=== PATIENT | female | born 1985 | race Caucasian/White ===

== ENCOUNTER 2020-03-10 18:03 | Emergency (ER) | payer OTHER, SELFPAY ==
[2020-03-10 18:07] VITALS: BP 146/94; PULSE 104; RESP 20; TEMP 37.4; O2SAT 98
--- NOTE | 2020-03-10 18:12 | ED.DENTAL ---
HPI - Dental/Oral General Chief complaint: Dental/Oral Stated complaint: toothache Time Seen by Provider: 03/10/20 18:07 Source: patient Mode of arrival: ambulatory Limitations: no limitations History of Present Illness HPI Narrative: patient is a 34-year-old female who presents to emergency department for evaluation of gross dental decay to the upper teeth where she has gross decay patient notes aching pain worse with eating denies other symptoms or complaints and is otherwise resting comfortably in the room in no distress does not have a plan follow-up nor is she been seen for this complaint Related Data Allergies Allergy/AdvReac Type Severity Reaction Status Date / Time No Known Allergies Allergy Unknown Verified 03/10/20 18:09 [facility] Social History Social History (Updated 03/10/20 @ 18:19 by Sanchez Trejo PA-C) Smoking status: Current every day smoker Exam Narrative: Exam Narrative: GENERAL: Well-appearing, well-nourished, and in no acute distress. HEAD: Normocephalic, atraumatic. EYES: PERRLA and EOMI. ENT: Nares clear, no rhinorrhea or epistaxis. Mucous membranes moist. Oropharynx without tonsillar hypertrophy exudate or other lesions. Gross dental decay no erythema or swelling of the gum lines floor the mouth is soft NECK: Supple. No adenopathy or masses. CHEST: Clear to auscultation. No respiratory distress. No wheezes rales or rhonchi HEART: Regular rate and rhythm. No murmur heard. Normal peripheral pulses. ABDOMEN: Soft, nontender, nondistended EXTREMITIES: Normal range of motion. No edema. SKIN: Warm, dry, no rash. NEURO: No focal deficits. Alert and oriented x3. PSYCH: Normal mood and affect. Course Course Emergency Course: Patient in the room at this time in no distress aware of case findings treatment plan and diagnosis will be given dental referrals Vital Signs Vital signs: Vital Signs Temperature 99.4 F 03/10/20 18:07 Pulse Rate 104 H 03/10/20 18:07 Respiratory Rate 20 03/10/20 18:07 Blood Pressure 146/94 H 03/10/20 18:07 Pulse Oximetry 98 03/10/20 18:07 Temperature 99.4 F 03/10/20 18:07 Pulse Rate 104 H 03/10/20 18:07 Respiratory Rate 20 10/24/20 18:07 Blood Pressure 146/94 H 03/10/20 18:07 Pulse Oximetry 98 03/10/20 18:07 MDM - Dental/Oral MDM Narrative Medical decision making narrative: Paitents pain and complaint coupled with physical findings are consistant with dentalgia. There are no focal signs of space occupying lesions that are compromising to the ariway. The floor of the mouth is soft with no signs of Ludwigs Angina. Patient is without trismus or drooling and able to swallow secreations. Patient is felt appropriate for discharge home with dental follow up. Discharge Plan Discharge Clinical Impression: Dental abscess Patient Disposition: Home, Self-Care Condition: Stable Instructions: Antibiotic Form, Dental Abscess (ED) Additional Instructions: Follow-up with dentistry in the next 7 days. Go to ER for shortness of breath, difficulty breathing, chest pain, fever/chills, weakness, nauseau/vomitting, etc. or any other concerns. Take any prescribed medications as directed. If you do not have a drug allergy to tylenol or motrin and can tolerate it then take tylenol or motrin as needed for discomfort/pain. Prescriptions: New amoxicillin 500 mg capsule 500 mg PO TID 10 Days Qty: 30 RF: 0 chlorhexidine gluconate [Peridex] 0.12 % mouthwash 15 ml mucous membrane BID Qty: 1500 RF: 0 ibuprofen [IBU] 600 mg tablet 600 mg PO QID PRN (Reason: fever or pain) Qty: 7 RF: 0 Follow-up/Referrals: Leno,MD Nathen [Primary Care Provider] - Dental Referral Line [Outside] [facility] [Outside] [facility] [place] [Outside] [facility] [Outside] Stand Alone Forms: Work/School Release IP
[2020-03-10 18:37] VITALS: BP 138/88; PULSE 100; RESP 20; O2SAT 100
== END 2020-03-10 18:38 | disposition home or self-care (01) ==
PROVIDERS: Emergency Provider Emergency Medicine; PCP Internal Medicine
DX: K04.7 Periapical abscess without sinus (principal); F17.200 Nicotine dependence, unspecified, uncomplicated
CPT/HCPCS: 99283

== ENCOUNTER 2025-03-22 10:48 | Emergency (ER) | payer OTHER, SELFPAY ==
--- NOTE | ~2025-03-22 | CT_ITS ---
CT HEAD NON-CONTRAST Clinical History: headache, new quality Comparison: 10/26/2012 Technique: Unenhanced axial images skull base to vertex Coronal, sagittal reformats CT images acquired with automatic exposure control for dose reduction DLP: 530 mGy-cm Findings: Sulci, ventricles: Unremarkable. No intracerebral hemorrhage. No evidence acute territorial infarct. No mass effect, midline shift. Bony calvarium intact. Visualized paranasal sinuses: Clear. Mastoid air cells: Clear. IMPRESSION: 1. No acute intracranial findings. Reviewed, dictated and finalized at location R. FORCE SENIOR OFFICER
[2025-03-22 11:12] VITALS: BP 110/70; PULSE 91; RESP 16; TEMP 36.8; O2SAT 100
--- NOTE | 2025-03-22 13:08 | ED_ITS ---
HPI - Headache General Chief Complaint: Headache Stated Complaint: blurry vision, ALEJANDRO x 2 days Time Seen by Provider: 03/22/25 13:05 History of Present Illness HPI Narrative: This is a 39-year-old female more with history of migraines who presents the ED for headache. Patient states that for the last 2 days, she has been having a frontal and bitemporal headache that is worse than her normal migraines. She states that yesterday she felt like she was drunk 7 difficulty walking around which is new for her. She has had photophobia and phonophobia. Denies nausea, vomiting, numbness tingling. She tried her sumatriptan that she has at home with minimal relief. Denies any known traumas. Related Data Allergies Allergy/AdvReac Type Severity Reaction Status Date / Time No Known Allergies Allergy Unknown Verified 03/22/25 11:15 Review of Systems Review of Systems: Gen.: Denies fevers or chills Eyes: As per HPI ENT: Denies congestion Respiratory: Denies shortness of breath or cough CV: Denies chest pain or palpitations GI: Denies abdominal pain nausea, emesis or diarrhea denies burning, urgency, frequency or hematuria Musculoskeletal: Denies back pain or muscle pain Neuro: Denies numbness, tingling, weakness or focal weakness Skin: Denies rash Except as documented, all other systems reviewed and negative Exam Narrative: APPEARANCE: No acute distress, nontoxic, resting in bed EYES: EOMI HEENT: Normocephalic, atraumatic, OMM RESPIRATORY: No respiratory distress Clear to auscultation bilaterally with no rhonchi wheezing or rales. CARDIOVASCULAR: Regular rate and rhythm without murmurs rubs or gallops. ABDOMINAL: Soft, nontender, nondistended, no rebound or guarding MUSCULOSKELETAl: Moves all extremities. No clubbing, cyanosis or edema. NEURO: Awake and alert. Following commands, speech normal, no focal deficits. NIHSS 0 SKIN:: Warm, dry. No rashes lesions or abrasions PSYCHIATRIC: Normal affect/mood, Course Vital Signs Vital signs: Vital Signs Temperature 98.2 F 03/22/25 11:12 Pulse Rate 91 03/22/25 11:12 Respiratory Rate 16 03/22/25 11:12 Blood Pressure 110/70 03/22/25 11:12 Pulse Oximetry 100 03/22/25 11:12 Temperature 98.1 F 03/22/25 14:44 Pulse Rate 75 03/22/25 14:44 Respiratory Rate 16 03/22/25 14:44 Blood Pressure 112/73 03/22/25 14:44 Pulse Oximetry 99 03/22/25 14:44 MDM - Headache MDM Narrative Medical decision making narrative: 39-year-old female Presenting for migraine headache. On initial evaluation patient was in no acute distress afebrile, hemodynamic stable. Differentials include but are not limited to: Migraine, tension headache, mass, electrolyte abnormality, ICH Notable exam findings: Nonfocal neuro exam Notable imaging findings: CT head showed no acute process. Given the new qualities of the headache whom CT imaging was indicated at this time it did show any masses or bleeds. Patient was given Compazine, Toradol with near resolution of her symptoms. Patient was deemed appropriate for discharge at this time. Patient was advised follow-up with their PCP in the next week for re-evaluation. Patient was agreeable to this plan. Given strict return precautions. Medical Records Attestation: I reviewed the patient's medical records. Imaging Data Attestation: I personally reviewed and interpreted this imaging study as follows: Radiologist's impression: Impressions Head CT 03/22/25 13:35 IMPRESSION: 1. No acute intracranial findings. Discharge Plan Discharge Clinical Impression: Migraine Patient Disposition: Home Condition: Stable Instructions: Antibiotic Form, Migraine Headache (ED) Additional Instructions: CT scan of your head was reassuring. You were given Compazine and Toradol and Decadron for headache with improvement. Follow-up with your PCP in the next week for re-evaluation. Return to the ED for any new or worsening symptoms. Patient Language: Portuguese Prescriptions: No Action amoxicillin 500 mg capsule 500 mg PO TID 10 Days Qty: 30 0RF chlorhexidine gluconate [Peridex] 0.12 % mouthwash 15 ml mucous membrane BID Qty: 1500 0RF ibuprofen [IBU] 600 mg tablet 600 mg PO QID PRN (Reason: fever or pain) Qty: 7 0RF Follow-up/Referrals: Leno,MD Nathen [Non-Staff]
[2025-03-22] MEDS: diphenhydrAMINE HCl CAP 25 MG CAPSULE PO (13:48)
[2025-03-22] MEDS: KETOROLAC 15 MG/ML VIAL (*BKC) IM (13:49)
[2025-03-22] MEDS: PROCHLORPERAZINE MALEATE 5 MG TABLET 10 MG PO (14:17)
[2025-03-22] MEDS: dexAMETHasone SOD PHOS INJ 10 MG/ML 1 ML VIAL IM (14:19)
[2025-03-22 14:44] VITALS: BP 112/73; PULSE 75; RESP 16; TEMP 36.7; O2SAT 99
--- OUTSIDE RECORDS SUMMARY | 2025-03-23 10:25 | XMS_ITS | Clinical Summary ---
Author Organization [facility] Address [address] [place] [address] Care Team Providers Care Envelope Sealer Operator Name Role Phone Dillon Calderon MD Primary Care Provider [phone] Source Comments [facility],non-owned Affiliates and Associated Physician Practices is amultiple site organization consisting of ambulatory clinics and hospital sitesin [place], [place], [place] and [place]. This disclosure is being madepursuant to the Care Everywhere program and may not contain all information available regarding this patient. Last updated 18.[facility] Allergies No known active allergies Medications * This document contains information received from the source organization and may not represent a complete record from that organization. * Be aware that medications may not be up to date on this document. Alwaysverify current medications with the patient. Dcjayqbl-Vhy-J e-FA ( VITAMIN WITH IRON) tablet Take 1 Tab by mouth once daily 30 Tab 5 02/03/20 16 Active methadone (DOLOPHINE) 10 MG tablet Take 130 mg by mouth once daily Active metoclopramide (REGLAN) 10 MG tablet Take 10 mg by mouth 3 times daily before meals Active acetaminophen (TYLENOL) 500 MG tablet Take 500 mg by mouth every 4 hours as needed for Fever or Pain Maximum allowable Acetaminophen amount = 4 Grams (4000 mg) / 24 hours. Active ondansetron, disintegrating , (ZOFRAN ODT) 4 MG tablet Take 4 mg by mouth every 6 hours as needed for Nausea/Vomiting Allow tablet to dissolve on the tongue Active docusate sodium (COLACE) 100 MG capsuleIndicat ions:Constipat ion Take 1 Cap by mouth 2 times daily as needed for Constipation Reasons: Constipation 60 Cap 4 09/26/19 17 Active polyethylene glycol 3350 (MIRALAX) packet Take 17 g by mouth once daily as needed for Constipation 30 Packet 1 10/23/19 17 Active raNITIdine (ZANTAC) 150 MG tabletIndicati ons:Gastroesop hageal Reflux Disease Take 1 Tab by mouth 2 times daily Reasons: Gastroesophageal Reflux Disease 60 Tab 5 10/31/19 17 Active ibuprofen (MOTRIN) 600 MG tablet Take 1 Tab by mouth every 6 hours as needed for Pain 60 Tab 1 11/30/19 17 Active docusate sodium (COLACE) 100 MG capsule Take 1 Cap by mouth 2 times daily 60 Cap 1 11/30/19 17 Active ferrous sulfate 325 (65 FE) MG tablet Take 1 Tab by mouth daily with breakfast 60 Tab 1 11/30/19 17 Active Active Problems Problem Noted Date Diagnosed Date Precipitous delivery 11/27/2016 Premature rupture of membran es (PROM), onset of labor after 24 hours, antepartum, 11/27/2016 Poor dentition 09/04/2016 Supervision of high risk in [facility] 09/03/2016 Overview (09/08/2016): Datinwk US Blood type: O- Ab screen: neg Rubella: imm Hepatitis B: neg RPR: NR HIV: NR Hepatitis C: needed Pap: requested GC/CT: neg/neg Urine cx: H/H/P:13.1/37.5/227 HgbE: Genetics: Anatomy US: GCT: GBS: Tdap: Flu shot: Methadone maintenance treatment affecting pregna ncy 09/03/2016 Rh negative state in antepartum period 7 History of heroin abuse 09/03/2016 WISH patient 09/03/2016 complicated by tobacco use in [facility] 09/03/2016 H/O delivery, currently 017 Short cervix affecting 09/03/2016 Oligohydramnios History of pelvic fracture Immunizations Immunization Administration Dates Next Due HEP A VACCINE, ADULT 09/04/2016 HEP B VACCINE, ADULT 3 DOSE 09/04/2016 Rho D Immune Globulin 11/28/2016,11/25/2016,08/17,02/03/2016 TDAP (7yrs+) 11/28/2016 Family History Medical History Relation Name Comments Cancer Maternal Grandfather Arthritis Maternal Grandmother Diabetes Maternal Grandmother Heart Disease Maternal Grandmother Hypertension Maternal Grandmother Stroke Maternal Grandmother Arthritis Mother Cancer Paternal Grandmother Relation Name Status Comments Daughter Alive Father Maternal Grandfather Maternal Grandmother Alive Mother Alive Paternal Grandfather Paternal Grandmother Alive Social History Tobacco Use Types Packs/Day Years Used Date Smoking Tobacco: Every Day Cigarettes 0.5 14 Smokeless Tobacco: Never Tobacco Cessation:Ready to Q uit: No; Counseling Given: Yes Alcohol Use Standard Drinks/Week Comments No 0 (1 standard drink = 0.6 oz pur e alcohol) Comments No Sex and Gender Information Value Date Recorded Sex Assigned at Not on file Legal Sex Female 6:32 AM 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 Gender Identity Not on file Sexual Orientation Not on file Last Filed Vital Signs Vital Sign Reading Time Taken Comments Blood Pressure 122/74 12/02/2016 9:32 PM CDT Pulse 90 11/29/2016 12:08 AM CDT Temperature 37.8 C (100.1 F) 12/02/2016 9:32 PM CDT Respiratory Rate 16 11/29/2016 8:30 AM CDT Oxygen Saturation 96% 12/02/2016 10:28 PM CDT Inhaled Oxygen Concentration - - Weight 71.4 kg (157 lb 8 oz) 11/23/2016 12:15 PM CDT Height 152.4 cm (5') 11/23/2016 12:15 PM CDT Body Mass Index 30.76 11/23/2016 12:15 PM CDT Plan of Treatment Health Maintenance Due Date Last Done Comments HPV VACCINE (1 - 3-dose SCDM series) 2014 HEPATITIS B VACCINE (2 of 3 - 19+ 3-dose series) 10/02/2016 09/04/2016 DEPRESSION SCREENING 05/18/2024 COVID-19 VACCINE ( - 2023-2 5 season) 2025 INFLUENZA VACCINE (#1) 2025 DTAP/TDAP/TD VACCINES (2 - T d or Tdap) 11/28/2026 11/28/2016 ZOSTER VACCINE (1 of 2) 2037 HIV SCREENING Completed 08/20/2016 HEPATITIS C SCREENING Completed 09/04/2016 HIB VACCINE Aged Out No longer eligi ble based on patient's age to complete this topic MENINGOCOCCAL (Group B) VACC INE SHARED DECISION-MAKING Aged Out No longer eligibl e based on patient's age to complete this topic MENINGOCOCCAL GROUPS A/C/Y/W VACCINE Aged Out No longer eligible b ased on patient's age to complete this topic PNEUMOCOCCAL VACCINE Aged Out No long er eligible based on patient's age to complete this topic Procedures Procedure Name Priority Date/Time Associated Diagnosis Comments HEPATITIS C ANTIBODY Routine 09/04/2016 10:24 AM CDT Methadone maintenance treatment affecting History of heroin abuse Opioid dependence in remission HIV-1 HIV-2 ANTIBODY W/ REFLX CONFIRM Routine 08/20/2016 from Last 3 Months or Most Recently Relevant to Health Maintenance Results * HEPATITIS C ANTIBODY (09/04/2016 10:24 AM CDT) HCV Antibody Screen Non Reactive Non Reactive 09/04/2016 12:05 PM CDT [facility] HCV S/C Ratio 0.06 0.00 - 0.79 09/04/2016 12:05 PM CDT [facility] Comment: Hzkpsh-kb-vtasfk ratio (S/CO) <0.80: Non Reactive Blood BLOOD SPECIMEN / Unknown Venipuncture / Unknown 09/04/2016 10:24 AM CDT 09/04/2016 10:48 AM CDT Narrative [facility] - 09/04/2016 12:05 PM CDT Non Reactive - Antibodies to Hepatitis C virus (HCV) were not detected, result does not exclude early acute HCV infection. Shruthi Conde NURSE DISCHARGE PLANNER-FORMULATION TECHNICIAN LAB - CHEMISTRY OR DERABLES Final Result [facility] [address] [place] [address] * HIV-1 HIV-2 ANTIBODY W/ REFLX CONFIRM (08/20/2016) HIV-1/HIV-2 Nonreactive Blood BLOOD SPECIMEN / Unknown Historical Provider LAB - SEROLOGY ORDERABLES Final Result from Last 3 Months or Most Recently Relevant to Health Maintenance Insurance [facility] Advance Directives * Full Code (Latest Code Status on File) Date Activated Date Inactivated Comments 12/02/2016 9:44 PM 12/03/2016 4:32 AM * Full Code Date Activated Date Inactivated Comments 11/11/2016 2:04 PM 11/29/2016 12:38 PM * Full Code Date Activated Date Inactivated Comments 11/11/2016 1:01 PM 11/11/2016 1:02 PM Care Teams Envelope Sealer Operator Relationship Specialty [place] [address] [place] [phone] PCP - General Internal Medicine 04/23/16
--- OUTSIDE RECORDS SUMMARY | 2025-03-23 10:25 | XMS_ITS | Clinical Summary ---
Author Organization [facility] Address [address] [place] [address] Care Team Providers Care Graduate Student Name Role Phone No, Physician Primary Care Provider [phone] Allergies No known active allergies Medications methadone solution 10 mg/5 mL Take 130 mg by mouth every 6 (six) hours as needed for pain Active levonorgestreL- ethinyl estrad (Aviane) 0.1-20 mg-mcg per tablet Take 1 tablet by mouth daily Active cyclobenzaprine (FLEXERIL) 10 mg tablet Take 1 tablet (10 mg total) by mouth 3 (three) times a day as needed 11/24/2024 Active gabapentin (NEURONTIN) 300 mg capsule TAKE 1 TO 2 CAPSULES BY MOUTH THREE TIMES DAILY NEEDED 10/18/2024 Active latanoprost (XALATAN) 0.005 % ophthalmic solution INSTILL 1 DROP INTO EACH EYE INTO EACH EYE AT NIGHT 10/18/2024 Active Active Problems No known active problems Social History Tobacco Use Types Packs/Day Years Used Date Smoking Tobacco: Every Day Cigarettes Smokeless Tobacco: Never Tobacco Cessation:Ready to Q uit: Not Asked; Counseling Given: Not Answered Comments No Sex and Gender Information Value Date Recorded Sex Assigned at Not on file Legal Sex Female 9:43 AM CDT Gender Identity Not on file Sexual Orientation Not on file Last Filed Vital Signs Vital Sign Reading Time Taken Comments Blood Pressure 112/74 11/28/2024 9:59 AM CDT Pulse 82 11/28/2024 9:59 AM CDT Temperature 36.7 C (98.1 F) 08/25/2018 9:44 AM CDT Respiratory Rate 16 08/25/2018 9:44 AM CDT Oxygen Saturation 98% 11/28/2024 9:59 AM CDT Inhaled Oxygen Concentration - - Weight 56.7 kg (125 lb) 11/28/2024 9:59 AM CDT Height 152.4 cm (5') 11/28/2024 9:59 AM CDT Body Mass Index 24.41 11/28/2024 9:59 AM CDT Plan of Treatment Health Maintenance Due Date Last Done Comments Cervical Cancer Screening 1987 Depression Screening 1987 Hepatitis C Screening 1987 Varicella Vaccines (1 of 2 - 13+ 2-dose series) 2000 Regular Well Visit/Exam 18-64 2005 Pneumococcal vaccine <65 (1 of 2 - PCV) 2006 HPV Vaccines (1 - 3-dose SCD M series) 2014 Covid-19 Vaccine (3 - 2024-2 6 season) 2025 06/05/2021, 05/06/2021 Influenza Vaccine (#1) 2025 , 03/27/2022, 04/03/2020, Additional history exists DTaP/Tdap/Td Vaccine (2 - Td or Tdap) 11/28/2026 11/28/2016 Hepatitis B Screening Completed 09/04/2016 Insurance Care Teams Graduate Student Relationship Specialty Start Date End Date No, Physician PCP - General 08/25/18
--- OUTSIDE RECORDS SUMMARY | 2025-03-23 12:43 | XMS_ITS | Clinical Summary ---
Author Organization [facility] Address [address] [place] [address] Care Team Providers Care Dimension Stone Quarry Supervisor Name Role Phone Cm Russell Primary Care Provider [phone] Social History Tobacco Use Types Packs/Day Years Used Date Smoking Tobacco: Never Assessed Comments Unknown Sex and Gender Information Value Date Recorded Sex Assigned at Not on file Legal Sex Female 9:34 AM CDT Gender Identity Not on file Sexual Orientation Not on file Plan of Treatment Health Maintenance Due Date Last Done Comments Cervical Cancer Screening Pa p Smear (Age 30 to 64) Every 3 Years 1987 Annual Physical 1990 Hepatitis C 2005 HPV Vaccines (1 - 3-dose SCD M series) 2014 Hepatitis B Vaccines (2 of 3 - 19+ 3-dose series) 10/02/2016 09/04/2016 Cervical Cancer Screening Pa p with HPV Testing (Age 30 to 64) Every 5 Years 2017 Cervical Cancer Screening with HPV 2017 COVID-19 Vaccine ( - 2024-2 6 season) 2025 Influenza Adult (#1) 2025 DTaP, Tdap and Td Vaccines ( 2 - Td or Tdap) 11/28/2026 11/28/2016 Hepatitis A Vaccines Aged Out 09/04/2016 No long er eligible based on patient's age to complete this topic Meningococcal B Vaccine Aged Out No l onger eligible based on patient's age to complete this topic Meningococcal Vaccine Aged Out No [place] noe eligible based on patient's age to complete this topic Pneumococcal Vaccine: Pediat rics (0 to 5 Years) and At-Risk Patients (6 to 49 Years) Aged Out No longer eligi ble based on patient's age to complete this topic RSV Immunizations Under 20 Months Aged Out No longer eligible based on patient's age to complete this topic Insurance [employer] Care Teams Dimension Stone Quarry Supervisor Relationship Specialty Start Date End Date Cm Russell PA PCP - General PHYSICIAN DEPARTURE CLERK 01/18/21
--- OUTSIDE RECORDS SUMMARY | 2025-03-23 12:43 | XMS_ITS | Clinical Summary ---
Author Organization [facility] Address [address] [place] [address] Care Team Providers Care Head Neck Surgeon Name Role Phone No, Physician Primary Care Provider [phone] Allergies No known active allergies Medications methadone [...] B Screening Completed 09/04/2016 Insurance Care Teams Head Neck Surgeon Relationship Specialty Start Date End Date No, Physician PCP - General 08/25/18
--- OUTSIDE RECORDS SUMMARY | 2025-03-23 12:43 | XMS_ITS | Clinical Summary ---
Author Organization [facility] Address [address] [place] [address] Care Team Providers Care Organ Teacher Name Role Phone Dillon Calderon MD Primary Care Provider [phone] Source Comments [facility],non-owned Affiliates and Associated Physician Practices is amultiple site organization consisting of ambulatory clinics and hospital sitesin [place], [place], [place] and [place]. This disclosure is being madepursuant to the Care Everywhere program and may not contain all information available regarding this patient. Last updated 18.[facility] Allergies No known active allergies Medications * This document contains information received from the source organization and may not represent a complete record from that organization. * Be aware that medications may not be up to date on this document. Alwaysverify current medications with the patient. Bgaxvjns-Ken-[id number] e-FA ( VITAMIN WITH IRON) tablet Take [...] dentition 09/04/2016 Supervision of high risk in [facility] 09/03/2016 Overview (09/08/2016): Datinwk US Blood type: [...] patient 09/03/2016 [facility] 09/03/2016 H/O delivery, currently 017 Short [...] on file Legal Sex Female 6:32 AM BINDERY OPERATOR Gender Identity Not on file Sexual Orientation [...] Reactive Non Reactive 09/04/2016 12:05 PM CDT [facility] HCV S/C Ratio 0.06 0.00 - 0.79 09/04/2016 12:05 PM CDT [facility] Comment: Aputfv-oy-nfieks ratio (S/CO) <0.80: Non Reactive Blood BLOOD SPECIMEN / Unknown Venipuncture / Unknown 09/04/2016 10:24 AM CDT 09/04/2016 10:48 AM CDT Narrative [facility] - 09/04/2016 12:05 PM CDT Non Reactive - Antibodies to Hepatitis C virus (HCV) were not detected, result does not exclude early acute HCV infection. Shruthi Conde FINANCE TEACHER-CUSTOMER PRICING MANAGER LAB - CHEMISTRY OR DERABLES Final Result [facility] [address] [place] [address] * HIV-1 HIV-2 ANTIBODY W/ REFLX CONFIRM (08/20/2016) HIV-1/HIV-2 Nonreactive Blood BLOOD SPECIMEN / Unknown Historical Provider LAB - SEROLOGY ORDERABLES Final Result from Last 3 Months or Most Recently Relevant to Health Maintenance Insurance [facility] Advance Directives * Full Code (Latest Code Status on File) Date Activated Date Inactivated Comments 12/02/2016 9:44 PM 12/03/2016 4:32 AM * Full Code Date Activated Date Inactivated Comments 11/11/2016 2:04 PM 11/29/2016 12:38 PM * Full Code Date Activated Date Inactivated Comments 11/11/2016 1:01 PM 11/11/2016 1:02 PM Care Teams Organ Teacher Relationship Specialty [place] [address] [place] [address] [phone] PCP - General Internal Medicine 04/23/16
== END 2025-03-22 14:45 | disposition home or self-care (01) ==
PROVIDERS: Emergency Provider Student in an Organized Health Care Education/Training Program; PCP Nurse Practitioner Family
DX: G43.909 Migraine, unspecified, not intractable, without status migrainosus (principal)
CPT/HCPCS: 70450; 96372; 99284; A9270; J1100; J1885

== ENCOUNTER 2025-04-05 12:09 | Emergency (ER) | payer OTHER, SELFPAY ==
--- NOTE | 2025-04-05 12:11 | ED.GENADULT ---
HPI - General Adult General Chief complaint: Urogenital-Female Stated complaint: lower back side pain Source: patient Mode of arrival: ambulatory Limitations: no limitations History of Present Illness HPI narrative: Pt is a 39 y/o female presenting with c/o atraumatic L. sided back pain. Pain started 2 days ago. 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 Reports hx of kidney stones. Denies hematuria, dysuria, urgency, frequency, abnormal vaginal discharge. No constitutional sx. No concern for STI or . No additional complaints. Related Data Allergies Allergy/AdvReac Type Severity Reaction Status Date / Time No Known Allergies Allergy Unknown Verified 04/05/25 12:10 Review of Systems Review of Systems: CONSTITUTIONAL: Denies body aches, fever, chills, or sweats. EYES: Denies visual changes, redness, or discharge. ENT: Denies rhinorrhea, congestion, sore throat, or otalgia. CARDIOVASCULAR: Denies chest pain, palpitations, or edema. RESPIRATORY: Denies cough or dyspnea. GASTROINTESTINAL: Denies abdominal pain, nausea, vomiting, or diarrhea. GENITOURINARY: Denies dysuria or hematuria. SKIN: Denies rash, itching, or wounds. MUSCULOSKELETAL: Reports back pain, denies joint pain, or myalgia. NEUROLOGIC: Denies headache, numbness, tingling, or weakness. PSYCH: Denies depression or anxiety. All systems reviewed & are unremarkable except as noted in HPI and below PMFSH Social History Social History Smoking status: Current every day smoker Exam Narrative: GENERAL: Well-appearing, well-nourished, and in no acute distress. HEAD: Normocephalic, atraumatic. EYES: EOMI. No redness or drainage. Conjunctivae normal. ENT: Mucous membranes pink and moist. NECK: Normal AROM. Supple. CHEST: No respiratory distress. HEART: Regular rate ABDOMEN: Soft, nontender, nondistended, normal active bowel sounds. +michael. CVAT MUSCULOSKELETAL: No bony tenderness. Tenderness with palpation along entire lower back EXTREMITIES: Normal range of motion. No edema. SKIN: Warm, dry, no rash. Capillary refill normal. Normal skin turgor. NEURO: No focal deficits. Alert and oriented x3. Gait steady. PSYCH: Normal affect. No signs of depression or anxiety. Course Course Level of Care: Express Care Visit Vital Signs Vital signs: Vital Signs Temperature 98.9 F 04/05/25 12:18 Pulse Rate 93 04/05/25 12:18 Respiratory Rate 16 04/05/25 12:18 Blood Pressure 139/85 04/05/25 12:18 Pulse Oximetry 100 04/05/25 12:18 Oxygen Delivery Room Air 04/05/25 12:18 Temperature 98.9 F 04/05/25 12:18 Pulse Rate 93 04/05/25 12:18 Respiratory Rate 16 04/05/25 12:18 Blood Pressure 139/85 04/05/25 12:18 Pulse Oximetry 100 04/05/25 12:18 Oxygen Delivery Room Air 04/05/25 12:18 Transfer Transfered to: [facility] Transportation: Other (POV) Transfer rationale: access to higher level of care/further diagnostic work up Accepting physician: Deanna Medical Decision Making MDM Narrative Medical decision making narrative: Given pt's reported sx, physical exam findings/urine dipstick results, PMH, I recommended she be transferred to ER for further diagnostic work up. Pt requested to be transferred to [facility] ER via POV. Pt is aware that she should go straight to ER and remain NPO until instructed otherwise. Differential Diagnosis Differential Diagnosis: Ddx: pyelonephritis, nephrolithiasis, UTI, STI, musculoskeletal pain Vital Signs Vital Signs: Vital Signs Temperature 98.9 F 04/05/25 12:18 Pulse Rate 93 04/05/25 12:18 Respiratory Rate 16 04/05/25 12:18 Blood Pressure 139/85 04/05/25 12:18 Pulse Oximetry 100 04/05/25 12:18 Oxygen Delivery Room Air 04/05/25 12:18 Temperature 98.9 F 04/05/25 12:18 Pulse Rate 93 04/05/25 12:18 Respiratory Rate 16 04/05/25 12:18 Blood Pressure 139/85 04/05/25 12:18 Pulse Oximetry 100 04/05/25 12:18 Oxygen Delivery Room Air 04/05/25 12:18 Lab Data Labs: Lab Results 04/05/25 Range/Units 12:21 POC Urine Color Tea colored POC Urine Clarity Cloudy POC Urine pH 7.0 POC Ur Specif [place] 1.015 POC Urine Protein 2+ (Negative) POC Ur Glucose (UA) Negative (Negative) POC Urine Ketones Negative (Negative) POC Urine Blood 2+ (Negative) POC Urine Nitrite Negative (Negative) POC Urine Bilirubin Negative (Negative) POC Urine Urobilinogen 1.0 POC U Leukocyte Esteras 3+ (Negative) Discharge Plan Discharge Clinical Impression: Bilateral costovertebral angle tenderness, Hematuria, Cloudy urine, Abnormal urine finding, Elevated blood pressure reading in office without diagnosis of hypertension Patient Disposition: Acute Care Hospital Condition: Stable Patient Language: Kiswahili Follow-up/Referrals: Thompson,Linda Mcintyre NP [Primary Care Provider, Unknown] Time of Disposition: 12:41
[2025-04-05 12:18] VITALS: BP 139/85; PULSE 93; RESP 16; TEMP 37.2; O2SAT 100
[2025-04-05 12:33] LABS: EDUAAPPEAR Cloudy; EDUABILI Negative (Negative); EDUABLOOD 2+ (Negative); EDUACOLOR1 Tea Colored; EDUAGLUCOSE Negative (Negative); EDUAKETONE Negative (Negative); EDUALEUKO 3+ (Negative); EDUANITRATE Negative (Negative); EDUAPH 7.0; EDUAPROTEIN 2+ (Negative); EDUASPGRAVITY 1.015; EDUAUROBILI 1.0
[2025-04-05 12:43] LABS: BEDSIDEPREGUCG Negative (Negative)
== END 2025-04-05 12:40 | disposition short-term general hospital (02) ==
PROVIDERS: Emergency Provider Registered Nurse; PCP Nurse Practitioner Family
DX: R39.853 Costovertebral (angle) tenderness, bilateral (principal); R31.9 Hematuria, unspecified; R82.998 Other abnormal findings in urine; E03.0 Congenital hypothyroidism with diffuse goiter; F17.200 Nicotine dependence, unspecified, uncomplicated
CPT/HCPCS: 81003; 81025; 99212; G0463

== ENCOUNTER 2025-04-05 15:19 | Emergency (ER) | payer OTHER, SELFPAY ==
[2025-04-05 15:28] VITALS: BP 117/78; PULSE 89; RESP 17; TEMP 37.1; O2SAT 97
--- NOTE | 2025-04-05 17:00 | ED.GENADULT ---
HPI - General Adult General Chief complaint: Urogenital-Female Stated complaint: poss kidney stone Focused HPI: 39 year old female presenting with left sided abdominal/flank pain with radiation to her back for the last 2-3 days. Also feels nauseated and fatigued and reports hematuria. Denies vomiting, diarrhea, cp/sob. Has a history of kidney stones. GENERAL: Uncomfortable-appearing, in mild distress HEAD: Normocephalic, atraumatic. CHEST: Clear to auscultation. ?No respiratory distress. ABDOMEN: Left sided TTP that wraps around to her back. Left CVA tenderness. HEART: Regular rate and rhythm.? NEURO: ?Alert and oriented x3. Patient screened in triage and initial orders placed.? ?Additional care and disposition to be based upon?diagnostic testing and treatment. Related Data Home Medications ?Medication ?Instructions ?Recorded ?Confirmed ?Last Taken ?Type atenolol 50 mg tablet 50 mg PO DAILY 04/06/25 04/06/25 04/06/25 History brimonidine 0.2 % eye drops 1 drp EACH EYE BID 04/06/25 04/06/25 04/06/25 History cyclobenzaprine 10 mg tablet 10 mg PO TID PRN muscle spasm 04/06/25 04/06/25 Unknown History gabapentin 300 mg capsule 600 mg PO TID 04/06/25 04/06/25 04/06/25 History latanoprost 0.005 % eye drops 1 drp EACH EYE QPM 04/06/25 04/06/25 04/05/25 History methadone 10 mg/mL oral syringe 100 mg PO DAILY 04/06/25 04/06/25 04/06/25 History (FOR ORAL USE ONLY) sertraline 100 mg tablet 200 mg PO DAILY 04/06/25 04/06/25 04/06/25 History sumatriptan succinate 100 mg 100 mg PO DAILY PRN migraine 04/06/25 04/06/25 04/05/25 History tablet (Imitrex) headache timolol maleate 0.5 % eye drops 1 drp EACH EYE Q12H 04/06/25 04/06/25 04/06/25 History Allergies Allergy/AdvReac Type Severity Reaction Status Date / Time No Known Allergies Allergy Unknown Verified 04/06/25 09:20 [facility] Social History Social History Smoking packs per day: 0.5 Smoking cigarettes per day: 10.0 Years smoked: 17 Smoking pack-years: 8.50 Smoking status: Current every day smoker Alcohol intake: never Substance use: never Lack of Transportation: No Lack of Food: Never True Current Housing: I Have Housing Concerned About Future Housing: No Difficulty Paying Gas/Electric Bills: No Difficulty Paying for Meds: No Currently Unemployed: No Education: Grade School Difficulty w/ Childcare or Family Care: No Spiritual care concerns: No Course Vital Signs Vital signs: Vital Signs Temperature 98.8 F 04/05/25 15:28 Pulse Rate 89 04/05/25 15:28 Respiratory Rate 17 04/05/25 15:28 Blood Pressure 117/78 04/05/25 15:28 Pulse Oximetry 97 04/05/25 15:28 Oxygen Delivery Room Air 04/05/25 15:28 Temperature 98.8 F 04/05/25 15:28 Pulse Rate 89 04/05/25 15:28 Respiratory Rate 17 04/05/25 15:28 Blood Pressure 117/78 04/05/25 15:28 Pulse Oximetry 97 04/05/25 15:28 Oxygen Delivery Room Air 04/05/25 15:28 Medical Decision Making MDM Narrative Medical decision making narrative: Patient left after medical screening exam and before any further evaluation or management. Vital Signs Vital Signs: Vital Signs Temperature 98.8 F 04/05/25 15:28 Pulse Rate 89 04/05/25 15:28 Respiratory Rate 17 04/05/25 15:28 Blood Pressure 117/78 04/05/25 15:28 Pulse Oximetry 97 04/05/25 15:28 Oxygen Delivery Room Air 04/05/25 15:28 Temperature 98.8 F 04/05/25 15:28 Pulse Rate 89 04/05/25 15:28 Respiratory Rate 17 04/05/25 15:28 Blood Pressure 117/78 04/05/25 15:28 Pulse Oximetry 97 04/05/25 15:28 Oxygen Delivery Room Air 04/05/25 15:28 Discharge Plan Discharge Clinical Impression: Back pain Patient Disposition: Elopement After Seen by Prov Patient Language: Liberian Prescriptions: No Action atenolol 50 mg tablet 50 mg PO DAILY brimonidine 0.2 % drops 1 drp EACH EYE BID cyclobenzaprine 10 mg tablet 10 mg PO TID PRN (Reason: muscle spasm) gabapentin 300 mg capsule 600 mg PO TID latanoprost 0.005 % drops 1 drp EACH EYE QPM sertraline 100 mg tablet 200 mg PO DAILY timolol maleate 0.5 % drops 1 drp EACH EYE Q12H methadone 10 mg/mL syringe 100 mg PO DAILY sumatriptan succinate [Imitrex] 100 mg tablet 100 mg PO DAILY PRN (Reason: migraine headache) Follow-up/Referrals: Thompson,Linda Mcintyre NP [Primary Care Provider, Unknown]
--- NOTE | 2025-04-05 18:19 | PC.NURSE ---
called from triage, no answer
--- NOTE | 2025-04-05 18:32 | PC.NURSE ---
called pt, no answer
--- NOTE | 2025-04-05 18:32 | PC.NURSE ---
called pt again to initiate orders with no answer
--- OUTSIDE RECORDS SUMMARY | 2025-04-05 23:37 | XMS_ITS | Clinical Summary ---
Author Organization [facility] Address [address] [place] [id number] Care Team Providers Care Speech Scientist Name Role Phone Cm Russell Primary Care Provider [phone] Social History Tobacco Use Types Packs/Day Years [...] this topic Insurance [employer] Care Teams Speech Scientist Relationship Specialty Start Date End Date Cm Russell PA PCP - General PHYSICIAN MODEL AND DYE PERSON 01/18/21
--- OUTSIDE RECORDS SUMMARY | 2025-04-05 23:37 | XMS_ITS | Clinical Summary ---
Author Organization [facility] Address [address] [place] [address] Care Team Providers Care Survey Workers Supervisor Name Role Phone No, Physician Primary Care Provider [phone] Allergies No known active allergies Medications methadone [...] B Screening Completed 09/04/2016 Insurance Care Teams Survey Workers Supervisor Relationship Specialty Start Date End Date No, Physician PCP - General 08/25/18
--- OUTSIDE RECORDS SUMMARY | 2025-04-05 23:37 | XMS_ITS | Data Portability ---
Author Organization [facility] [employer], Main Office Address [address] [place] [address] Assessment No assessment recorded. Plan of Treatment Reminders Order Date Submit Date Provider Last Modified By Organization Details Last Modified Time Details Appointments None recorded. Lab urinalysis, dipstick 2023 024 [facility] [address], [place], [address], 4 14:38:58 Referral neurologist referral - Please call patient to schedule an appointment . Thank you. 2024 025 [email or web address] [facility] [address] [place] [facility] [place], [place], [address], 5 10:38:01 Procedures None recorded. Surgeries None recorded. Imaging CT, head + brain, w/o contrast 2024 025 [email or web address] [facility] ([facility]), [address] [place], [address], 5 10:28:26 Medication Orders doxycycline hyclate 100 mg tablet 2024 025 [facility], [address] [place], [address], 5 10:15:38 prednisone 20 mg tablet 2024 025 [facility], [address] [place], [address], 5 10:15:37 atenolol 50 mg tablet 2023 024 [facility], [address] [place], [address], 4 14:15:22 sumatriptan 100 mg tablet 2023 024 [facility], [address] [place] [address], [address], 4 14:15:22 cyclobenzap rine 10 mg tablet 2023 024 [facility], [address] [place] [address], [address], 4 14:15:21 gabapentin 300 mg capsule 2023 024 [facility], [address] [place] [address], [address], 4 14:15:20 sertraline 100 mg tablet 2023 024 [facility] [address], [address] [place] [address], [address], 4 14:15:19 Patient TargetsNo targets recorded. Patient InstructionsNo instructions recorded. Reason for Referral Neurologist Referral for Mem ory impairment Please call patient to schedule an appointment. Thank you. Referring Physician: Linda Mackay, Family Medicine, Encounter Date: 08/31/2024 Results Created Date Observation Date Name Description Value Unit Range Abnormal Flag Note LastModifiedBy Organization Detail LastModifiedTime 10/20/19 24 10/20/2023 urina lysis , dipst ick Leukocytes (reference range: negative jarod/ l) Large Not Available [facility] [address], [place], [address], 10/20/2023 10:55:09 10/20/19 24 10/20/2023 urina lysis , dipst ick Nitrite (reference rage: negative mg/dl) positi ve Not Available [address], [place], [address], 10/20/2023 10:55:10/20/19 24 10/20/2023 urina lysis , dipst ick Urobilinogen (reference range: 0.2-1 mg/dl) 1 Not Available [address], [place], [address], 10/20/2023 10:55:10/20/19 24 10/20/2023 urina lysis , dipst ick Protein (reference range: negative mg/dl) Small Not Available [address], [place], [address], 10/20/2023 10:55:10/20/19 24 10/20/2023 urina lysis , dipst ick pH (reference range: 5-7) 6.0 Not Available [address], [place], [address], 10/20/2023 10:55:10/20/19 24 10/20/2023 urina lysis , dipst ick Blood (reference range: negative Abner/ l) Small Not Available [address], [place], [address], 10/20/2023 10:55:10/20/19 24 10/20/2023 urina lysis , dipst ick Specific [place] (reference range: 1.005-1.030) 1.030 Not Available [address], [place], [address], 10/20/2023 10:55:10/20/19 24 10/20/2023 urina lysis , dipst ick Ketone (reference range: negative mg/dl) Negati ve Not Available [address], [place], [address], 10/20/2023 10:55:09 10/20/19 24 10/20/2023 urina lysis , dipst ick Bilirubin (reference range: negative mg/dl) Small Not Available [address], [place], [address], 10/20/2023 10:55:09 10/20/19 24 10/20/2023 urina lysis , dipst ick Glucose (reference range: negative mg/dl) Negati ve Not Available [address], [place], [address], 10/20/2023 10:55:09 10/20/19 24 10/20/2023 urina lysis , dipst ick Appearance Slight ly Cloudy Not Available [address], [place], [address], 10/20/2023 10:55:09 10/20/19 24 10/20/2023 urina lysis , dipst ick Color Yellow Not Available [address], [place], [address], 10/20/2023 10:55:09 12/09/19 24 12/09/2023 urina lysis , dipst ick Leukocytes (reference range: negative jarod/ l) Small Not Available [address], [place], [address], 12/09/2023 14:11:42 12/09/19 24 12/09/2023 urina lysis , dipst ick Nitrite (reference rage: negative mg/dl) negati ve Not Available [address], [place], [address], 12/09/2023 14:11:42 12/09/19 24 12/09/2023 urina lysis , dipst ick Urobilinogen (reference range: 0.2-1 mg/dl) 1 Not Available [address], [place], [address], 12/09/2023 14:11:42 12/09/19 24 12/09/2023 urina lysis , dipst ick Protein (reference range: negative mg/dl) Modera te Not Available [address], [place], [address], 12/09/2023 14:11:42 12/09/19 24 12/09/2023 urina lysis , dipst ick pH (reference range: 5-7) 6.5 Not Available [address], [place], [address], 12/09/2023 14:11:42 12/09/19 24 12/09/2023 urina lysis , dipst ick Blood (reference range: negative Abner/ l) Modera te Not Available [address], [place], [address], 12/09/2023 14:11:42 12/09/19 24 12/09/2023 urina lysis , dipst ick Specific [place] (reference range: 1.005-1.030) 1.030 Not Available [address], [place], [address], 12/09/2023 14:11:42 12/09/19 24 12/09/2023 urina lysis , dipst ick Ketone (reference range: negative mg/dl) Negati ve Not Available [address], [place], [address], 12/09/2023 14:11:42 12/09/19 24 12/09/2023 urina lysis , dipst ick Bilirubin (reference range: negative mg/dl) Negati ve Not Available [address], [place], [address], 12/09/2023 14:11:42 12/09/19 24 12/09/2023 urina lysis , dipst ick Glucose (reference range: negative mg/dl) Negati ve Not Available [address], [place], [address], 12/09/2023 14:11:42 12/09/19 24 12/09/2023 urina lysis , dipst ick Appearance Cloudy Not Available [address], [place], [address], 12/09/2023 14:11:42 12/09/19 24 12/09/2023 urina lysis , dipst ick Color [place] Not Available [address], [place], [address], 12/09/2023 14:11:42 06/29/19 25 06/29/2024 urina lysis , dipst ick Leukocytes (reference range: negative jarod/ l) Large Not Available [address], [place], [address], 06/29/2024 14:26:45 06/29/19 25 06/29/2024 urina lysis , dipst ick Nitrite (reference rage: negative mg/dl) positi ve Not Available [address], [place], [address], 06/29/2024 14:26:45 06/29/19 25 06/29/2024 urina lysis , dipst ick Urobilinogen (reference range: 0.2-1 mg/dl) 1 Not Available [address], [place], [address], 06/29/2024 14:26:45 06/29/19 25 06/29/2024 urina lysis , dipst ick Protein (reference range: negative mg/dl) Negati ve Not Available [address], [place], [address], 06/29/2024 14:26:45 06/29/19 25 06/29/2024 urina lysis , dipst ick pH (reference range: 5-7) 7.5 Not Available [address], [place], [address], 06/29/2024 14:26:45 06/29/19 25 06/29/2024 urina lysis , dipst ick Blood (reference range: negative Abner/ l) Non-He molyze d: Trace Not Available [address], [place], [address], 06/29/2024 14:26:45 06/29/19 25 06/29/2024 urina lysis , dipst ick Specific [place] (reference range: 1.005-1.030) 1.020 Not Available [address], [place], [address], 06/29/2024 14:26:45 06/29/19 25 06/29/2024 urina lysis , dipst ick Ketone (reference range: negative mg/dl) Negati ve Not Available [address], [place], [address], 06/29/2024 14:26:45 06/29/19 25 06/29/2024 urina lysis , dipst ick Bilirubin (reference range: negative mg/dl) Negati ve Not Available [address], [place], [address], 06/29/2024 14:26:45 06/29/19 25 06/29/2024 urina lysis , dipst ick Glucose (reference range: negative mg/dl) Negati ve Not Available [address], [place], [address], 06/29/2024 14:26:45 06/29/19 25 06/29/2024 urina lysis , dipst ick Appearance Cloudy Not Available [address], [place], [address], 06/29/2024 14:26:45 06/29/19 25 06/29/2024 urina lysis , dipst ick Color Yellow Not Available [address], [place], [address], 06/29/2024 14:26:45 07/11/19 25 07/11/2024 urina lysis , dipst ick Leukocytes (reference range: negative jarod/ l) Trace Not Available [address], [place], [address], 07/11/2024 15:01:21 07/11/19 25 07/11/2024 urina lysis , dipst ick Nitrite (reference rage: negative mg/dl) positi ve Not Available [address], [place], [address], 07/11/2024 15:01:21 07/11/19 25 07/11/2024 urina lysis , dipst ick Urobilinogen (reference range: 0.2-1 mg/dl) 1 Not Available [address], [place], [address], 07/11/2024 15:01:21 07/11/19 25 07/11/2024 urina lysis , dipst ick Protein (reference range: negative mg/dl) Trace Not Available [address], [place], [address], 07/11/2024 15:01:21 07/11/19 25 07/11/2024 urina lysis , dipst ick pH (reference range: 5-7) 6.0 Not Available [address], [place], [address], 07/11/2024 15:01:21 07/11/19 25 07/11/2024 urina lysis , dipst ick Blood (reference range: negative Abner/ l) Large Not Available [address], [place], [address], 07/11/2024 15:01:21 07/11/19 25 07/11/2024 urina lysis , dipst ick Specific [place] (reference range: 1.005-1.030) 1.030 Not Available [address], [place], [address], 07/11/2024 15:01:21 07/11/19 25 07/11/2024 urina lysis , dipst ick Ketone (reference range: negative mg/dl) Negati ve Not Available [address], [place], [address], 07/11/2024 15:01:21 07/11/19 25 07/11/2024 urina lysis , dipst ick Bilirubin (reference range: negative mg/dl) Small Not Available [address], [place], [address], 07/11/2024 15:01:21 07/11/19 25 07/11/2024 urina lysis , dipst ick Glucose (reference range: negative mg/dl) Negati ve Not Available [address], [place], [address], 07/11/2024 15:01:21 07/11/19 25 07/11/2024 urina lysis , dipst ick Appearance Cloudy Not Available [address], [place], [address], 07/11/2024 15:01:21 07/11/19 25 07/11/2024 urina lysis , dipst ick Color Dark Yellow Not Available [address], [place], [address], 07/11/2024 15:01:21 03/22/20 25 03/22/2025 CT, head + brain , w/o contr ast No observ ation record ed. [id number] [facility] [address], [place], [address], 03/22/2025 16:12:16 Result Notes None recorded. Problems Name Problem SNOMED Code Status Onset Date Resolution Date Notes Provider Name and Address Organization Details Recorded Time Complete miscarria ge 683563350 Completed Not Available [facility] 3 04:53:58 RhD negative 415705438 Completed Not Available [facility] 3 04:53:58 Threatene d miscarria ge in first trimester 66337633 Completed Not Available [facility] 3 04:53:58 Fracture of pelvis 29598979 Active Not Available [facility] 3 04:53:58 [id number] Completed 201608/20/2016 Not Available [facility] 3 04:53:58 Mixed anxiety and depressiv e disorder 632494770 Active 2022 Mikki Hawley MD [address] [place] [address], [facility] [address], [place], [address] , [facility] 3 17:53:08 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 Active 2022 Mikki Hawley MD [address], [address], [place], [address] , [facility] 3 10:42:53 Abnormal urine odor 8034813 Active 2022 Itzel Hope LPN null, [facility] 3 14:42:31 Acute urinary tract infection 306150379 Active 2022 Mikki Hawley MD [address], [address], [place], [address] , [facility] [employer] [facility] 3 07:52:20 Ulnar neuropath y of right arm [id number] 9108 Active 2022 SHERRY Charles-C [address], [address], [place], [address] , [facility] 3 14:20:53 Paresthes ia of upper limb 61868291 Active 2022 Mikki Hawley MD [address], [address], [place], [address] , [facility] [employer] [facility] 3 10:49:14 Lumbago with sciatica 389958468 Active 2022 SHERRY Hernandez [address], [address], [place], [address] , [facility] 3 19:24:37 Headache 93952483 Active 2023 Mikki Hawley MD [address], [place], [address] , [facility] [employer] [facility] 4 09:24:12 Dysuria 71334987 Active 2023 SHERRY Peña-Americo [address], [address], [place], [address] , [facility] [employer] [facility] 5 08:40:29 Memory impairmen t 490706704 Active 2024 TAYLA Peña [address], [address], [place], [address] , [facility] [employer] [facility] 5 10:08:21 Abscess of skin and/or subcutane ous tissue 20413216 Active 2024 TAYLA Peña [address], [address], [place], [address] , [facility] [employer] [facility] 5 10:14:54 Problem Notes None recorded. Procedures Surgical History Date Name Laterality Status Provider Name and Address Organization Details Recorded Time 04/08/20 21 [employer] Surgery completed Not Available [facility] 07/17/19 04:43:20 06/06/19 16 [employer] Surgery completed Not Available [facility] 07/17/19 04:43:20 closure of skin by suture completed Not Available [facility] 07/16/2022 04:43:20 tonsillectomy completed Not Available [facility] 07/16/2022 04:43:20 cerclage completed Not Available [facility] 04:43:20 Imaging Results None recorded. Procedure Notes None recorded. Medical Equipment None Reported. Allergies No known drug allergies Medications Name Sig Start Date Stop Date Status Note LastModified by Organization Details LastModified Time cyclobenzap rine 10 mg tablet Take 1 tablet by mouth three times daily as needed 2024 active Not Available Not Available Not Avai lable amoxicillin 500 mg capsule TAKE 1 CAPSULE BY MOUTH THREE TIMES DAILY FOR 10 DAYS active Not Available Not Available No t Available latanoprost 0.005 % eye drops INSTILL 1 DROP INTO EACH EYE INTO EACH EYE AT NIGHT active Not Available Not Available No t Available Aviane 0.1 mg-20 mcg tablet Take 1 tablet every day by oral route. active Not Available Not Available No t Available clindamycin HCl 300 mg capsule TAKE 1 CAPSULE BY MOUTH THREE TIMES DAILY FOR 10 DAYS 02/16 completed Not Available Not Available Not Available polyethylen e glycol 3350 17 gram oral powder packet 02/09 completed Not Available Not Available Not Available ibuprofen 800 mg tablet 06/27 completed Not Available Not Available Not Available sumatriptan 100 mg tablet 1 po qday prn migraine active Not Available Not Available No t Available hydrocodone 5 mg-acetamin ophen 325 mg tablet Take 1-2 tablets by oral route every 6 hours as necessary for pain 07/01 completed Not Available Not Available Not Available ondansetron HCl 4 mg tablet Take 1 tablet every 8 hours by oral route. 02/09 completed Not Available Not Available Not Available Medrol (Cj) 4 mg tablets in a dose pack Take 1 dose pk by oral route. 02/16 completed Not Available Not Available Not Available prednisone 20 mg tablet TAKE 2 TABLETS BY MOUTH ONCE DAILY FOR 5 DAYS 2024 active Not Available Not Available Not Avai lable sertraline 100 mg tablet TAKE 2 TABLETS BY MOUTH ONCE DAILY active Not Available Not Available No t Available Doc-Q-Lace 100 mg capsule 02/09 completed Not Available Not Available Not Available methylergon ovine 0.2 mg tablet Take 1 tablet every 6 hours by oral route. active Not Available Not Available No t Available ciprofloxac in 500 mg tablet Take 1 tablet every 12 hours by oral route for 5 days. 08/31 completed Not Available Not Available Not Available sulfamethox azole 800 mg-trimetho prim 160 mg tablet TAKE 1 TABLET BY MOUTH EVERY 12 HOURS FOR 7 DAYS active Not Available Not Available No t Available famotidine 20 mg tablet Take 1 tablet twice a day by oral route for 30 days. 06/27 completed Not Available Not Available Not Available Depo-Leaf Sorter a 150 mg/mL intramuscul ar suspension Inject 1 mL every 3 months by intramusc ular route. 06/27 completed Not Available Not Available Not Available cyanocobala min (vit B-12) 1,000 mcg/mL injection solution 1 ml sc x 1 12/08 completed pt kera well Not Available Not Available Not Available naproxen sodium 550 mg tablet 07/01 completed Not Available Not Available Not Available ferrous sulfate 325 mg (65 mg iron) tablet 01/31 completed Not Available Not Available Not Available nitrofurant oin macrocrysta l 100 mg capsule TAKE 1 CAPSULE BY MOUTH EVERY 6 HOURS FOR 7 DAYS 12/08 completed Not Available Not Available Not Available ranitidine 150 mg tablet 02/09 completed Not Available Not Available Not Available brimonidine 0.2 % eye drops INSTILL 1 DROP INTO BOTH EYES TWICE DAILY active Not Available Not Available No t Available progesteron e micronized 200 mg capsule 02/09 completed Not Available Not Available Not Available gabapentin 300 mg capsule TAKE 1 TO 2 CAPSULES BY MOUTH THREE TIMES DAILY NEEDED active Not Available Not Available No t Available sertraline 25 mg tablet TAKE 1 TABLET BY MOUTH ONCE DAILY active Not Available Not Available No t Available ibuprofen 600 mg tablet active Not Available Not Available Not Available timolol maleate 0.5 % eye drops INSTILL 1 DROP INTO EACH EYE TWICE DAILY active Not Available Not Available No t Available ondansetron 4 mg disintegrat ing tablet Take 2 tablets every 8 hours by oral route for 30 days. 02/09 completed Not Available Not Available Not Available sertraline 50 mg tablet TAKE 1 TABLET BY MOUTH ONCE DAILY TOTAL DOSE OF 150 MG A DAY OF 02/14 completed Not Available Not Available Not Available doxycycline hyclate 100 mg tablet Take 1 tablet twice a day by oral route for 10 days. 2024 active Not Available Not Available Not Avai lable atenolol 50 mg tablet TAKE 1 TABLET BY MOUTH ONCE DAILY active Not Available Not Available No t Available naproxen 500 mg tablet Take 1 tablet twice a day by oral route as needed. 07/01 completed Not Available Not Available Not Available metoclopram michelle 10 mg tablet Take 1 tablet 3 times a day by oral route. 02/09 completed Not Available Not Available Not Available Tylenol Extra Strength 500 mg tablet Take 2 tablets every 6-8 hours by oral route as needed. 06/27 completed Not Available Not Available Not Available oxycodone 5 mg tablet 04/25 completed Not Available Not Available Not Available medroxyprog esterone 150 mg/mL intramuscul ar syringe Inject 1 mL every 3 months by intramusc ular route. 06/27 completed Not Available Not Available Not Available cyclobenzap rine 5 mg tablet Take 1 tablet by mouth three times daily as needed 02/16 completed Not Available Not Available Not Available nitrofurant oin monohydrate /macrocryst als 100 mg capsule TAKE 1 CAPSULE BY MOUTH EVERY 12 HOURS FOR 5 DAYS 08/31 completed Not Available Not Available Not Available chlorhexidi ne gluconate 0.12 % mouthwash RINSE 15 ML IN MOUTH TWICE DAILY active Not Available Not Available No t Available methadone 100 mg daily 2016 active Not Available Not Available Not Avai lable Nexplanon 68 mg subdermal implant 02/27 completed Not Available Not Available Not Available 28 mg iron-800 mcg tablet Take 1 tablet every day by oral route. 02/09 completed Not Available Not Available Not Available Classic 28 mg iron-800 mcg tablet 02/09 completed Not Available Not Available Not Available Fluzone Quad (PF) 60 mcg (15 mcg x 4)/0.5 mL IM syringe PHARMACIS T ADMINISTE RED IMMUNIZAT ION ADMINISTE RED AT TIME OF DISPENSIN G 12/08 completed Not Available Not Available Not Available ID NOW COVID-19 Test Kit TEST DIRECTED TODAY 12/08 completed Not Available Not Available Not Available Fluzone Quad (PF) 60 mcg (15 mcg x 4)/0.5 mL IM syringe PHARMACIS T ADMINISTE RED IMMUNIZAT ION ADMINISTE RED AT TIME OF DISPENSIN G 12/08 completed Not Available Not Available Not Available Vitals Date Recorded Body height Body mass index (BMI) Body weight Body temperature Heart rate Oxygen saturation Oxygen saturation in Arterial blood by Pulse oximetry Pain severity - 0-10 verbal numeric rating [Score] - Reported Systolic And Diastolic Provider Name and Address Organization Details Last Updated DateTime 5 152.4 cm 25 kg/m2 53967.8 2 g 98.5 [degF] 94 /min 97 % 97 % 6 118/78 mm[Hg] Blessing Nava MA [facility] [employer] 5 09:59:31 Date Recorded Body height Provider Name an d Address Organization Details Last Updated DateTime 10/20/2023 152.4 cm Pradeep Lucas RN [facility] [employer] 10/20/2023 16:16:44 Date Recorded Body height Body mass index (BMI) Body weight Body temperature Heart rate Oxygen saturation Oxygen saturation in Arterial blood by Pulse oximetry Systolic And Diastolic Provider Name and Address Organization Details Last Updated DateTime 4 152.4 cm 27.3 kg/m2 99741.9 3 g 98 [degF] 95 /min 97 % 97 % 118/80 mm[Hg] Pradeep Lucas RN [facility] 14:01:43 Social History Question Answer Notes LastModified by Organizat ion Details LastModified Time Tobacco Smoking Status Current Every Day Smoker LINDA [place], [place] [employer] 08/31/2024 10:01:09 What Is Your Level Of Caffeine Consumption? Moderate [id number] Information not available 07/16/2022 In The 14 Days Before Symptom Onset, Have You Had Close Contact With A Laboratory-confirm ed COVID-19 While That Case Was Ill? No Information n ot available 08/31/2024 In The 14 Days Before Symptom Onset, Have You Had Close Contact With A Person Who Is Under Investigation For COVID-19 While That Person Was Ill? No Information not available 08/31/2024 What Type Of Diet Are You Following? REGULAR Information n ot available 08/31/2024 Have There Been Any Changes To Your Family Or Social Situation? No Information no t available 08/31/2024 Do You Use Insect Repellent Routinely? No Information not available 08/31/2024 Where Do You Live? Apartment Inform ation not available 08/31/2024 What Was The Date Of Your Most Recent Tobacco Screening? 08/31/2024 Information not available 08/31/2024 How Many Children Do You Have? 2 Information not available 08/31/2024 Do You Have Any Pets? No Information not available 08/31/2024 What Is Your Relationship Status? Single [id number] Information not available 07/16/2022 Do You Use Your Seat Belt Or Car Seat Routinely? Yes [id number] Information not available 07/16/2022 Do You Have Smoke And Carbon Monoxide Detectors In Your Home? Yes Information not available 08/31/2024 At What Age Did You Start Smoking Tobacco? 17 Information not available 08/31/2024 Are You Passively Exposed To Smoke? Yes Information no t available 08/31/2024 Are There Any Smokers In Your House? No Information not available 08/31/2024 How Much Tobacco Do You Smoke? 0.5 PPD [id number] Information not available 07/16/2022 Do You Participate In Social Media? Yes Information not available 08/31/2024 Do You Use Sunscreen Routinely? No Information not available 08/31/2024 Have You Recently Traveled Abroad? No Information not available 08/31/2024 Are You Currently In School? No Information not available 08/31/2024 Do You Have Any Dietary Restrictions? No Information not available 08/31/2024 Sex: Female Functional Status Question Answer Note LastModified by Organizat ion Details LastModified Time Do you use any illicit or recreational drugs? No [id number] Information not available 07/16/2022 Do you or have you ever used any other forms of tobacco or nicotine? No Information not available 08/31/2024 What is your level of alcohol consumption? None [id number] Information not available 07/16/2022 Are you currently employed? No Information not available 08/31/2024 What is your exercise level? None [id number] Information not available 07/16/2022 Mental Status Question Answer Note LastModified by Organization D etails LastModified Time Do you feel stressed (tense, restless, nervous, or anxious, or unable to sleep at night)? [id number] Information not available 08/31/2024 Family History Relationship Description Onset Age of this Age Resolved Age Notes LastModified by Organization Details LastModified Time Maternal Uncle Crohn's disease [id number] Not available 07/16/2022 04:43:28 Maternal Uncle Malignant neoplasm of colon [id number] Not available 07/16/2022 04:43:28 Notes:HX of varities of canc ers on both sides of family -nm Medical History No medical history recorded. Gynecological History Statement/Question Response How many live births 2 Abnormal Pap N Date of Last Pap Smear Current Control Method Tubal Ligat ion Age at Menarche 14 Date of LMP Obstetrics History GPAL:G 4 P 2 0 2 2 Type Value Multiple Births 0 Full Term 2 Induced 0 Spontaneous 2 Premature 0 Living 2 Ectopics 0 Total 4 Immunizations Vaccine Type Date Status Note Provider Nam e and Address Organization Details Recorded Time Influenza, split virus, quadrivalent, PF 02/16/2023 completed Pradeep Lucas RN [facility], [place] - [facility] [employer] [facility] 02/16/2023 11:18:03 Influenza, split virus, quadrivalent, PF 03/27/2022 completed Not Available [facility] 05:06:21 Past Encounters Encounter ID Performer Location Encounter Start Date Encounter Closed Date Diagnosis/Indication Diagnosis SNOMED-CT Code Diagnosis ICD10 Code Diagnosis IMO Codes Diagnosis Note [id number] [facility] _ATHENA_M IGRATION_ DEFAULT_1 _1 , 09/17/2020 00:00:00 09/17/2020 11:42:16 [id number]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
--- OUTSIDE RECORDS SUMMARY | 2025-04-06 01:46 | XMS_ITS | Clinical Summary ---
Author Organization [facility] Address [address] [place] [address] Care Team Providers Care Catalyst Operator Chief Name Role Phone Cm Russell Primary Care Provider [phone] Social History Tobacco Use Types Packs/Day Years [...] this topic Insurance [employer] Care Teams Catalyst Operator Chief Relationship Specialty Start Date End Date Cm Russell PA PCP - General PHYSICIAN STRIPPER MACHINE OPERATOR 01/18/21
--- OUTSIDE RECORDS SUMMARY | 2025-04-06 01:46 | XMS_ITS | Clinical Summary ---
Author Organization [facility] Address [address] [place] [address] Care Team Providers Care Forestry Laborer Name Role Phone No, Physician Primary Care Provider [phone] Allergies No known active allergies Medications methadone [...] B Screening Completed 09/04/2016 Insurance Care Teams Forestry Laborer Relationship Specialty Start Date End Date No, Physician PCP - General 08/25/18
--- OUTSIDE RECORDS SUMMARY | 2025-04-06 01:46 | XMS_ITS | Clinical Summary ---
Author Organization [facility] Address [address] [place] [address] Care Team Providers Care Jeep Driver Name Role Phone Dillon Calderon MD Primary Care Provider [phone] Source Comments [facility],non-owned Affiliates and Associated Physician Practices is amultiple site organization consisting of ambulatory clinics and hospital sitesin [place], [place], [place] and [place]. This disclosure is being madepursuant to the Care Everywhere program and may not contain all information available regarding this patient. Last updated 18.[facility] [employer] [facility] Allergies No known active allergies Medications * This document contains information received from the source organization and may not represent a complete record from that organization. * Be aware that medications may not be up to date on this document. Alwaysverify current medications with the patient. 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 Gender Identity Not on file Sexual Orientation [...] Health Maintenance Due Date Last Done Comments PAP SMEAR 2008 HPV VACCINE (1 - 3-dose SCDM series) 2014 HEPATITIS B VACCINE (2 of 3 - 19+ 3-dose series) 10/02/2016 09/04/2016 Cervical Cancer Screening 2017 PAP with HPV 2017 DEPRESSION SCREENING 05/18/2024 COVID-19 VACCINE (1 - 2024-2 6 season) 2025 INFLUENZA VACCINE (#1) 2025 DTAP/TDAP/TD [...] Reactive Non Reactive 09/04/2016 12:05 PM CDT [facility] HCV S/C Ratio 0.06 0.00 - 0.79 09/04/2016 12:05 PM CDT [facility] Comment: Iamxba-qr-sxmoyf ratio (S/CO) <0.80: Non Reactive Blood BLOOD SPECIMEN / Unknown Venipuncture / Unknown 09/04/2016 10:24 AM CDT 09/04/2016 10:48 AM CDT Narrative [facility] - 09/04/2016 12:05 PM CDT Non Reactive - Antibodies to Hepatitis C virus (HCV) were not detected, result does not exclude early acute HCV infection. us Shruthi Conde [place] SUPERINTENDENT-SEPARATOR TENDER LAB - CHEMISTRY OR DERABLES Final Result [facility] [address] [place] [address] * HIV-1 HIV-2 ANTIBODY W/ REFLX CONFIRM (08/20/2016) HIV-1/HIV-2 Nonreactive Blood BLOOD SPECIMEN / Unknown us Historical Provider LAB - SEROLOGY ORDERABLES Final Result from Last 3 Months or Most Recently Relevant to Health Maintenance Insurance [facility] Advance Directives * Full Code (Latest Code Status on File) Date Activated Date Inactivated Comments 12/02/2016 9:44 PM 12/03/2016 4:32 AM * Full Code Date Activated Date Inactivated Comments 11/11/2016 2:04 PM 11/29/2016 12:38 PM * Full Code Date Activated Date Inactivated Comments 11/11/2016 1:01 PM 11/11/2016 1:02 PM Care Teams Jeep Driver Relationship Specialty Start Date End Date Dillon Calderon MD [address] [place] [phone] PCP - General Internal Medicine 04/23/16
== END 2025-04-05 18:32 | disposition left against medical advice (07) ==
LOC: ANHED 19:04
PROVIDERS: PCP Nurse Practitioner Family
DX: M54.9 Dorsalgia, unspecified (principal); F17.210 Nicotine dependence, cigarettes, uncomplicated
CPT/HCPCS: 99281

== ENCOUNTER 2025-04-06 09:14 | Observation (INO) | payer OTHER, SELFPAY ==
--- NOTE | ~2025-04-06 | CT_ITS ---
CT ABDOMEN AND PELVIS WITHOUT CONTRAST Clinical History: flank pain Comparison: 02/11/2010 Technique: Unenhanced axial images lung bases to symphysis pubis Coronal, sagittal reformats CT images acquired with automatic exposure control for dose reduction DLP: 220 mGy-cm Findings: Without intravenous contrast, sensitivity for detecting visceral parenchymal abnormalities decreased. Lung bases: Clear. Visualized heart and pericardium: Unremarkable. Liver: Hepatomegaly. Steatosis. Gallbladder: Unremarkable. Spleen: Enlarged. Pancreas: Unremarkable. Adrenal glands: Unremarkable. Kidneys: Right kidney- No hydronephrosis. Small stone. Left kidney- Hydronephrosis. Tiny stone. 7 mm stone UPJ. Distal esophagus/stomach: Unremarkable. Small bowel loops: Normal caliber and wall thickness. Colon: Normal caliber and wall thickness. Normal RLQ appendix. Nodes: No enlarged nodes. Peritoneum: No ascites. No free intraperitoneal air. Urinary bladder: Unremarkable. Uterus: Unremarkable. Adnexa: No masses. Small pelvic free fluid. Bones: No acute bony abnormality. Bone island left ischium. Soft tissues: Unremarkable. Unopacified abdominal aorta: No aneurysmal dilatation. IMPRESSION: 1. Left kidney hydronephrosis due to 7 mm UPJ stone. 2. Small bilateral nephrolithiasis. 3. Additional findings as above. Reviewed, dictated and finalized at location R. RVISOR ROVING
--- NOTE | ~2025-04-06 | XR_ITS ---
EXAM/PROCEDURE: XR abdomen/kub 1V HISTORY: L upj stone; LLQ PAIN x3 DAYS COMPARISON: None available. TECHNIQUE: KUB FINDINGS: 6 x 3 mm stone adjacent to the left L4 transverse process noted consistent with ureteral stone. Phlebolith-appearing stones overlie the lower pelvis. Moderate possibly large amount of stool present. Otherwise nonspecific bowel gas pattern. IMPRESSION: 6 x 3 mm stone adjacent to the left L4 transverse process consistent with history provided of ureteral stone. Reviewed, dictated and finalized at location A. SH PATCHER IMPRESSION: 6 x 3 mm stone adjacent to the left L4 transverse process consistent with histo ry provided of ureteral stone.
--- NOTE | ~2025-04-06 | XR_ITS ---
EXAMINATION: C-arm assisted placement of stent, left ureter: DATE: 04/07/2025. INDICATION: Left hydronephrosis due to 7 mm UPJ stone TECHNIQUE: C-arm assisted procedure. Fluoroscopic exposure time 58 seconds. COMPARISON: CT dated 04/06/2025 FINDINGS: Retrograde placement of stent is noted. Calcific densities are noted at L3 level consistent with calculi in the proximal left ureter. IMPRESSION: 1. As mentioned above Reviewed, dictated and finalized at location T. STITCH LINING SETTER IMPRESSION: 1. As mentioned above
[2025-04-06 09:18] VITALS: BP 116/79; PULSE 88; RESP 16; TEMP 36.8; O2SAT 99
[2025-04-06 11:08] LABS: BEDSIDEPREGUCG Negative (Negative)
[2025-04-06 11:44] LABS: Hematocrit 30.4 % (37.0-47.0); Hemoglobin 9.7 g/dL (12.0-15.0); Immature Granulocyte Percent A 0.4 % (0-0.5); Lymphocytes Absolute Auto 1.83 K/mm3 (0.9-3.2); Mean Corpuscular HGB Conc 31.9 g/dl (32-36); Mean Corpuscular Hemoglobin 29.8 pg (26-34); Mean Corpuscular Volume 93.5 fl (80-100); Nucleated Red Blood Cells Absolute Auto 0.000 K/mm3 (0.0-0.012); Nucleated Red Blood Cells Perc 0.0 % (0.0-0.2); Platelet Count Result 393 k/mm3 (150-375); Red Blood Count 3.25 M/mm3 (4.2-5.4); White Blood Count 9.9 K/mm3 (4.5-10.0)
[2025-04-06 11:47] LABS: Add Urine Microscopic? YES; Appearance Urine Turbid (Clear); Glucose Urine UA Negative (Negative); Leukocyte Esterase Ur 3+ LEU/UL (Negative); Nitrate Urine Negative (Negative); Specific Grav Ur 1.011 (1.001-1.035)
[2025-04-06 11:56] LABS: Alanine Aminotransferase 16 U/L (6-35); Albumin Level 3.7 g/dL (3.5-5.1); Alkaline Phosphatase 85 U/L (38-126); Anion Gap 5 mmol/L (4-12); Aspartate Amino Transferase 28 U/L (14-36); Bilirubin,Total 0.4 mg/dL (0.2-1.3); Blood Urea Nitrogen 17 mg/dL (7-17); Calcium 9.0 mg/dL (8.4-10.2); Carbon Dioxide 31 mmol/L (22-30); Chloride 102 mmol/L (98-107); Estimated CRCL calculation 47 ml/min; Estimated Glomerular Filt Rate 59; Glucose 77 mg/dL (65-110); Potassium 4.2 mmol/L (3.4-5.0); Sodium 138 mmol/L (137-145); Total Protein 8.9 g/dL (6.3-8.2)
[2025-04-06] MEDS: SODIUM CHLORIDE 0.9% IV 1,000 ML 999 ML IV CONT (12:02)
[2025-04-06] MEDS: MORPHINE SULFATE (*CRX) 4 MG/ML INJ IV PUSH ×2 (12:03→18:12)
[2025-04-06] MEDS: ONDANSETRON INJ 4 MG/2 ML VIAL IV PUSH (12:03)
[2025-04-06] MEDS: cefTRIAXone 1 GM in SODIUM CHLORIDE 0.9% IV 50 ML 100 ML IVPB (12:03)
--- NOTE | 2025-04-06 12:03 | ED.BACK ---
HPI - Back Pain/Injury General Chief Complaint: Back Pain/Injury <Megan Olguin PA-C - Last Filed: 04/06/25 13:38> Stated Complaint: kidney pain <CAROLINA Madison Last Filed: 04/06/25 13:38> Time Seen by Provider: 04/06/25 10:55 <CAROLINA Madison Last Filed: 04/06/25 13:38> Source: patient <CAROLINA Madison Last Filed: 04/06/25 13:38> Mode of arrival: ambulatory <CAROLINA Madison Last Filed: 04/06/25 13:38> Limitations: no limitations <CAROLINA Madison Last Filed: 04/06/25 13:38> History of Present Illness HPI Narrative: Patient is a 39-year-old female who presents the ED with report of left-sided flank pain. Patient reports having pain throughout her left flank region radiating into her left lower abdomen for the past 2 days. Pain has been worsening. She was seen in the ED here yesterday but left after initial MSE. Reports having urinary frequency and intermittent hematuria. Reports nausea, denies vomiting. Believe she may have had a low-grade fever yesterday, but did not check it. Reports long history of kidney stones. Does not regularly follow with a urologist at this time. Has required lithotripsy in the past. <CAROLINA Madison Last Filed: 04/06/25 13:38> Related Data Home Medications: Home Medications ?Medication ?Instructions ?Recorded ?Confirmed ?Last Taken ?Type atenolol 50 mg tablet 50 mg PO DAILY 04/06/25 04/06/25 04/06/25 History brimonidine 0.2 % eye drops 1 drp EACH EYE BID 04/06/25 04/06/25 04/06/25 History cyclobenzaprine 10 mg tablet 10 mg PO TID PRN muscle spasm 04/06/25 04/06/25 Unknown History gabapentin 300 mg capsule 600 mg PO TID 04/06/25 04/06/25 04/06/25 History latanoprost 0.005 % eye drops 1 drp EACH EYE QPM 04/06/25 04/06/25 04/05/25 History methadone 10 mg/mL oral syringe 100 mg PO DAILY 04/06/25 04/06/25 04/06/25 History (FOR ORAL USE ONLY) sertraline 100 mg tablet 200 mg PO DAILY 04/06/25 04/06/25 04/06/25 History sumatriptan succinate 100 mg 100 mg PO DAILY PRN migraine 04/06/25 04/06/25 04/05/25 History tablet (Imitrex) headache timolol maleate 0.5 % eye drops 1 drp EACH EYE Q12H 04/06/25 04/06/25 04/06/25 History <Megan Olguin PA-C - Last Filed: 04/06/25 13:38> Allergies/Adverse Reactions: Allergies Allergy/AdvReac Type Severity Reaction Status Date / Time No Known Allergies Allergy Unknown Verified 04/06/25 09:20 <Megan Olguin PA-C - Last Filed: 04/06/25 13:38> Review of Systems Review of Systems: All systems reviewed & are unremarkable except as noted in HPI. <Megan Olguin PA-C - Last Filed: 04/06/25 13:38> All systems reviewed & are unremarkable except as noted in HPI and below <Megan Olguin PA-C - Last Filed: 04/06/25 13:38> [facility] Social History Social History: Social History Smoking packs per day: 0.5 Smoking cigarettes per day: 10.0 Years smoked: 17 Smoking pack-years: 8.50 Smoking status: Current every day smoker Alcohol intake: never Substance use: never Lack of Transportation: No Lack of Food: Never True Current Housing: I Have Housing Concerned About Future Housing: No Difficulty Paying Gas/Electric Bills: No Difficulty Paying for Meds: No Currently Unemployed: No Education: Grade School Difficulty w/ Childcare or Family Care: No Spiritual care concerns: No <Megan Olguin PA-C - Last Filed: 04/06/25 13:38> Exam Narrative: GENERAL: Well appearing, well-nourished, non-toxic, in no acute distress. HEAD: Normocephalic, atraumatic. RESPIRATORY: Airway patent, respirations nonlabored. Clear to auscultation bilaterally, no rales, rhonchi, wheezing. CARDIOVASCULAR: Regular rate and rhythm without murmurs, rubs, or gallops. ABDOMINAL: Soft, mild tenderness palpation throughout left lower quadrant, nondistended. Normoactive BS. Positive left-sided CVA tenderness MUSCULOSKELETAL: Moves all extremities. No gross deformities. SKIN: Warm, dry, normal color. NEURO: A&O X3. Speech clear. Cranial nerves II-XII grossly intact. Steady gait. No ataxic movements. PSYCHIATRIC: Appropriate mood and affect. Normal interaction. <Megan Olguin PA-C - Last Filed: 04/06/25 13:38> Course FINISHING POWDER PRESS OPERATOR/PA Physician Supervision This visit was performed by both a physician and an APC. I performed all aspects of the MDM as documented. <Mookie Canas MD - Last Filed: 04/06/25 20:51> Vital Signs Vital signs: Vital Signs Temperature 98.2 F 04/06/25 09:18 Pulse Rate 88 04/06/25 09:18 Respiratory Rate 16 04/06/25 09:18 Blood Pressure 116/79 04/06/25 09:18 Pulse Oximetry 99 04/06/25 09:18 Oxygen Delivery Room Air 04/06/25 09:18 Temperature 97.5 F L 04/06/25 14:45 Pulse Rate 80 04/06/25 14:45 Respiratory Rate 16 04/06/25 14:45 Blood Pressure 97/66 L 04/06/25 14:45 Pulse Oximetry 100 04/06/25 14:45 Oxygen Delivery Room Air 04/06/25 14:30 <Megan Olguin PA-C - Last Filed: 04/06/25 13:38> Vital Signs Temperature 98.2 F 04/06/25 09:18 Pulse Rate 88 04/06/25 09:18 Respiratory Rate 16 04/06/25 09:18 Blood Pressure 116/79 04/06/25 09:18 Pulse Oximetry 99 04/06/25 09:18 Oxygen Delivery Room Air 04/06/25 09:18 Temperature 97.5 F L 04/06/25 14:45 Pulse Rate 80 04/06/25 14:45 Respiratory Rate 16 04/06/25 14:45 Blood Pressure 97/66 L 04/06/25 14:45 Pulse Oximetry 100 04/06/25 14:45 Oxygen Delivery Room Air 04/06/25 14:30 <Mookie Canas MD - Last Filed: 04/06/25 20:51> MDM - Back Pain/Injury MDM Narrative Medical decision making narrative: Patient presented to ED with 2 day history of left flank and abdominal pain, intermittent hematuria. History of kidney stones. Vital signs stable upon arrival. Patient is afebrile here. Mildly uncomfortable appearing. CBC w/ WBC 9.9. Mild anemia noted, Hgb 9.7. No records to compare to. Kidney function is stable. Creatinine 1.05. Urine appears infectious with 3+ leuk esterase, 6-10 RBC, greater than 100 WBC, 1+ urine bacteria. Sent for culture. Urine negative. CT scan of abdomen/pelvis was obtained and showing 7 mm UPJ stone on the left with hydronephrosis. Consistent with clinical picture. Given presence of large stone with suspected UTI, patient started on Rocephin. Discussed case with Jeanne, urology, advised will discuss with on-call Urology for possible surgical intervention/stent placement today. Patient unfortunately ate approximately 1 hour ago. Urology discussed case with Anesthesiology, advised to OR tomorrow. Admit to hospitalist for pain/infection control. Discussed case with Melanie CHAVEZ hospitalist, accepted patient for admission. Patient in agreement with plan/admission. NPO midnight. <Megan Olguin PA-C - Last Filed: 04/06/25 13:38> Medical Records Attestation: I reviewed the patient's medical records. <Megan Olguin PA-C - Last Filed: 04/06/25 13:38> Lab Data Attestation: I reviewed the patient's lab results. <Megan Olguin PA-C - Last Filed: 04/06/25 13:38> Result diagrams: 04/06/25 11:31 04/06/25 11:31 <CAROLINA Madison Last Filed: 04/06/25 13:38> Labs: Lab Results 04/06/25 04/06/25 Range/Units 11:06 11:31 WBC 9.9 (4.5-10.0) K/mm3 RBC 3.25 L (4.2-5.4) M/mm3 Hgb 9.7 L (12.0-15.0) g/dL Hct 30.4 L (37.0-47.0) % MCV 93.5 (80-100) fl MCH 29.8 (26-34) pg MCHC 31.9 L (32-36) g/dl RDW 12.2 (11.5-14.5) % Plt Count 393 H (150-375) k/mm3 MPV 8.3 (7.4-10.4) fl Immature Gran % (Auto) 0.4 (0-0.5) % Neut % (Auto) 74.1 H (45.5-73.1) % Lymph % (Auto) 18.4 (18.3-44.2) % Glynn % (Auto) 6.0 (2.6-8.5) % Eos % (Auto) 0.7 (0-4.4) % Baso % (Auto) 0.4 (0.2-1.2) % Lymph # (Auto) 1.83 (0.9-3.2) K/mm3 [place]nn # (Auto) 0.6 (0.1-0.6) K/mm3 Eos # (Auto) 0.1 (0-0.3) K/mm3 Baso # (Auto) 0.0 (0.0-0.1) K/mm3 Abs Immat Gran (auto) 0.04 H (0.00-0.031) K/mm3 Absolute Neuts (auto) 7.4 H (1.3-6.7) K/mm3 Absolute Nucleated RBC 0.000 (0.0-0.012) K/mm3 Nucleated RBC % 0.0 (0.0-0.2) % Sodium 138 (137-145) mmol/L Potassium 4.2 (3.4-5.0) mmol/L Chloride 102 (98-107) mmol/L Carbon Dioxide 31 H (22-30) mmol/L Anion Gap 5 (4-12) mmol/L BUN 17 (7-17) mg/dL Creatinine 1.05 H (0.7-1.0) mg/dL Estim Creat Clear Calc 47 ml/min Estimated GFR 59 (59 - ) Glucose 77 (65-110) mg/dL Calcium 9.0 (8.4-10.2) mg/dL Total Bilirubin 0.4 (0.2-1.3) mg/dL AST 28 (14-36) U/L ALT 16 (6-35) U/L Alkaline Phosphatase 85 (38-126) U/L Total Protein 8.9 H (6.3-8.2) g/dL Albumin 3.7 (3.5-5.1) g/dL Urine Color Yellow (Yellow) Urine Appearance Turbid H (Clear) Urine pH 7.0 (5.0-9.0) Ur Specific [place] 1.011 (1.001-1.035) Urine Protein 1+ H (Negative) mg/dL Urine Glucose (UA) Negative (Negative) mg/dL Urine Ketones Negative (Negative) mg/dL Ur Blood (Man) 2+ H (Negative) Urine Nitrate Negative (Negative) Urine Bilirubin Negative (Negative) Urine Urobilinogen 1.0 (<2.0) mg/dL Leukocyte Esterase Rfl 3+ H (Negative) FERNANDO/UL Urine RBC 6-10 H (0-2) /hpf Urine WBC >100 H (0-3) /hpf Ur Squamous Epith Cells Occasional (Few) /hpf Urine Bacteria 1+ H /hpf Urine Casts 3-5 POC Urine HCG, Qual Negative (Negative) <Megan Olguin PA-C - Last Filed: 04/06/25 13:38> Lab Results 04/06/25 04/06/25 Range/Units 11:06 11:31 WBC 9.9 (4.5-10.0) K/mm3 RBC 3.25 L (4.2-5.4) M/mm3 Hgb 9.7 L (12.0-15.0) g/dL Hct 30.4 L (37.0-47.0) % MCV 93.5 (80-100) fl MCH 29.8 (26-34) pg MCHC 31.9 L (32-36) g/dl RDW 12.2 (11.5-14.5) % Plt Count 393 H (150-375) k/mm3 MPV 8.3 (7.4-10.4) fl Immature Gran % (Auto) 0.4 (0-0.5) % Neut % (Auto) 74.1 H (45.5-73.1) % Lymph % (Auto) 18.4 (18.3-44.2) % Glynn % (Auto) 6.0 (2.6-8.5) % Eos % (Auto) 0.7 (0-4.4) % Baso % (Auto) 0.4 (0.2-1.2) % Lymph # (Auto) 1.83 (0.9-3.2) K/mm3 [place] # (Auto) 0.6 (0.1-0.6) K/mm3 Eos # (Auto) 0.1 (0-0.3) K/mm3 Baso # (Auto) 0.0 (0.0-0.1) K/mm3 Abs Immat Gran (auto) 0.04 H (0.00-0.031) K/mm3 Absolute Neuts (auto) 7.4 H (1.3-6.7) K/mm3 Absolute Nucleated RBC 0.000 (0.0-0.012) K/mm3 Nucleated RBC % 0.0 (0.0-0.2) % Sodium 138 (137-145) mmol/L Potassium 4.2 (3.4-5.0) mmol/L Chloride 102 (98-107) mmol/L Carbon Dioxide 31 H (22-30) mmol/L Anion Gap 5 (4-12) mmol/L BUN 17 (7-17) mg/dL Creatinine 1.05 H (0.7-1.0) mg/dL Estim Creat Clear Calc 47 ml/min Estimated GFR 59 (59 - ) Glucose 77 (65-110) mg/dL Calcium 9.0 (8.4-10.2) mg/dL Total Bilirubin 0.4 (0.2-1.3) mg/dL AST 28 (14-36) U/L ALT 16 (6-35) U/L Alkaline Phosphatase 85 (38-126) U/L Total Protein 8.9 H (6.3-8.2) g/dL Albumin 3.7 (3.5-5.1) g/dL Urine Color Yellow (Yellow) Urine Appearance Turbid H (Clear) Urine pH 7.0 (5.0-9.0) Ur Specific [place] 1.011 (1.001-1.035) Urine Protein 1+ H (Negative) mg/dL Urine Glucose (UA) Negative (Negative) mg/dL Urine Ketones Negative (Negative) mg/dL Ur Blood (Man) 2+ H (Negative) Urine Nitrate Negative (Negative) Urine Bilirubin Negative (Negative) Urine Urobilinogen 1.0 (<2.0) mg/dL Leukocyte Esterase Rfl 3+ H (Negative) FERNANDO/UL Urine RBC 6-10 H (0-2) /hpf Urine WBC >100 H (0-3) /hpf Ur Squamous Epith Cells Occasional (Few) /hpf Urine Bacteria 1+ H /hpf Urine Casts 3-5 POC Urine HCG, Qual Negative (Negative) <Mookie Canas MD - Last Filed: 04/06/25 20:51> Imaging Data Attestation: I personally reviewed and interpreted this imaging study as follows: <Megan Olguin PA-C - Last Filed: 04/06/25 13:38> Radiologist's impression: ITS Impressions Abdomen/Pelvis CT 04/06/25 11:25 IMPRESSION: 1. Left kidney hydronephrosis due to 7 mm UPJ stone. 2. Small bilateral nephrolithiasis. 3. Additional findings as above. <Megan Olguin PA-C - Last Filed: 04/06/25 13:38> Discharge Plan Discharge Clinical Impression: Calculus of proximal left ureter UTI (urinary tract infection) Qualifiers: Urinary tract infection type: acute cystitis Hematuria presence: with hematuria Qualified Code(s): N30.01 - Acute cystitis with hematuria <CAROLINA Madison Last Filed: 04/06/25 13:38> Patient Disposition: Still a Patient <CAROLINA Madison Last Filed: 04/06/25 13:38> Condition: Stable <CAROLINA Madison Last Filed: 04/06/25 13:38>
--- NOTE | 2025-04-06 13:20 | WPDURCON ---
Assessment and Plan Assessment and plan (1) UTI (urinary tract infection): Qualifiers: Hematuria presence: with hematuria Urinary tract infection type: acute cystitis Qualified Code(s): N30.01 - Acute cystitis with hematuria Code(s): N39.0 - Urinary tract infection, site not specified Status: Acute (2) Calculus of proximal left ureter: Code(s): N20.1 - Calculus of ureter Status: Acute Plan CT AP reveals 1. Left kidney hydronephrosis due to 7 mm UPJ stone.2. Small bilateral nephrolithiasis - WBC WNL - creatinine 1.05 - UA concerning for infection. Agree with empiric antibiotics. Urine culture pending. Culture driven antibiotics per primary service. - NPO after midnight - plan for cystoscopy left retrograde pyelogram and left ureteral stent placement tomorrow with Dr. Lambert. Surgery time pending. - Discussed this with the patient and her . We discussed the risks of surgery including bleeding, infection, damage to surrounding structures, and even . We discussed stents and symptoms of stents and what to expect. We discussed the reasons behind needing to wait for stone management after infection resolution. And we discussed the stent course after stone resolution. Patient and agreeable to surgery and voiced understanding. Urology Consult Note HPI Date Seen: 04/06/25 Primary Care Provider: Linda Mackay, RETURNS PROCESSOR Consult Narrative Narrative: Patient is a 39-year-old female who presents the ED with report of left-sided flank pain. Patient reports having pain throughout her left flank region radiating into her left lower abdomen for the past 2 days. Pain has been worsening. She was seen in the ED here yesterday but left after initial MSE. Reports having urinary frequency and intermittent hematuria. Reports nausea, denies vomiting. Believe she may have had a low-grade fever yesterday, but did not check it. Reports long history of kidney stones. Does not regularly follow with a urologist at this time. Has required lithotripsy in the past. patient ate a 3-4inch long slim dottie around 1130am today. Review of Systems Review of Systems: All systems reviewed & are unremarkable except as noted in HPI and below PMFSH Social History Social History Smoking packs per day: 0.5 Smoking cigarettes per day: 10.0 Years smoked: 17 Smoking pack-years: 8.50 Smoking status: Current every day smoker Alcohol intake: never Substance use: never Lack of Transportation: No Lack of Food: Never True Current Housing: I Have Housing Concerned About Future Housing: No Difficulty Paying Gas/Electric Bills: No Difficulty Paying for Meds: No Currently Unemployed: No Education: Grade School Difficulty w/ Childcare or Family Care: No Spiritual care concerns: No Meds Home Medications and Allergies Home Medications ?Medication ?Instructions ?Recorded ?Confirmed ?Type atenolol 50 mg tablet 50 mg PO DAILY 04/06/25 04/06/25 History brimonidine 0.2 % eye drops 1 drp EACH EYE BID 04/06/25 04/06/25 History cyclobenzaprine 10 mg tablet 10 mg PO TID PRN muscle spasm 04/06/25 04/06/25 History gabapentin 300 mg capsule 600 mg PO TID 04/06/25 04/06/25 History latanoprost 0.005 % eye drops 1 drp EACH EYE QPM 04/06/25 04/06/25 History methadone 10 mg/mL oral syringe 100 mg PO DAILY 04/06/25 04/06/25 History (FOR ORAL USE ONLY) sertraline 100 mg tablet 200 mg PO DAILY 04/06/25 04/06/25 History sumatriptan succinate 100 mg 100 mg PO DAILY PRN migraine 04/06/25 04/06/25 History tablet (Imitrex) headache timolol maleate 0.5 % eye drops 1 drp EACH EYE Q12H 04/06/25 04/06/25 History Allergies Allergy/AdvReac Type Severity Reaction Status Date / Time No Known Allergies Allergy Unknown Verified 04/06/25 09:20 Vital Signs Vital Signs - 24 hr 04/06/25 09:18 Temperature 98.2 F Pulse Rate 88 Respiratory Rate 16 Blood Pressure 116/79 Pulse Oximetry 99 Oxygen Delivery Room Air Exam Const: General: uncomfortable HENMT: Face/Nose/Sinus: Normal nares present Eyes: General: appearance normal, both eyes and all related structures Resp: Effort & Inspection: normal respiratory effort Skin: General skin exam: normal color Neuro: Speech: normal speech Psych: Speech and movement: Normal speech and movement present Results Labs 04/06/25 11:31 04/06/25 11:31 Labs: Short CBC 04/06/25 Range/Units 11:31 WBC 9.9 (4.5-10.0) K/mm3 Hgb 9.7 L (12.0-15.0) g/dL Hct 30.4 L (37.0-47.0) % Plt Count 393 H (150-375) k/mm3 BMP 04/06/25 11:31 Sodium 138 Potassium 4.2 Chloride 102 Carbon Dioxide 31 H BUN 17 Creatinine 1.05 H Glucose 77 Calcium 9.0 Liver Function 04/06/25 Range/Units 11:31 Total Bilirubin 0.4 (0.2-1.3) mg/dL AST 28 (14-36) U/L ALT 16 (6-35) U/L Alkaline Phosphatase 85 (38-126) U/L Albumin 3.7 (3.5-5.1) g/dL Urine 04/06/25 Range/Units 11:31 Urine Color Yellow (Yellow) Urine Appearance Turbid H (Clear) Urine pH 7.0 (5.0-9.0) Ur Specific [place] 1.011 (1.001-1.035) Urine Protein 1+ H (Negative) mg/dL Urine Glucose (UA) Negative (Negative) mg/dL
[2025-04-06 13:33] VITALS: BP 120/77; PULSE 90; RESP 16; TEMP 36.8; O2SAT 95
--- NOTE | 2025-04-06 13:35 | WPCEDHO ---
ED Hand Off Checklist All vitals saved:yes IV Site documented:yes All med administrations documented:yes Triage Note Triage Note patient A&OX4 with c/o left 04/06/25 11:21 flank pain for 2-3 days. reports that when she voided there was blood when she wiped agree with triage note Allergies No Known Allergies Allergy (Unknown, Verified 04/06/25 09:20) PER CODED ALLERGIES Administered/Completed Medications Discontinued Medications Sodium Chloride (Normal Saline Iv) 1,000 mls @ 999 mls/hr IV CONT .Q1H1M STA Stop: 04/06/25 12:53 Last Infusion: 04/06/25 13:03 Dose: Infused Documented By: Admin: 04/06/25 12:02 Dose: 999 mls/hr Documented By: ANT Ceftriaxone Sodium 1 gm/ (Sodium Chloride) 50 mls @ 100 mls/hr IVPB ONCE STA Stop: 04/06/25 12:22 Last Infusion: 04/06/25 13:03 Dose: Infused Documented By: Admin: 04/06/25 12:03 Dose: 100 mls/hr Documented By: ANT Morphine Sulfate (Morphine Sulfate (*Crx) 4 Mg/Ml Inj) 4 mg IV PUSH ONCE STA Stop: 04/06/25 11:54 Last Admin: 04/06/25 12:03 Dose: 4 mg Documented By: ANT Ondansetron HCl (Ondansetron Inj 4 Mg/2 Ml Vial) 4 mg IV PUSH ONCE STA Stop: 04/06/25 11:54 Last Admin: 04/06/25 12:03 Dose: 4 mg Documented By: ANT Interventions/Assessments IV / Saline Lock, Insert Start: 04/06/25 10:43 Freq: STAT Status: Active Protocol: Document 04/06/25 11:29 ANT (Rec: 04/06/25 11:29 ANT [id number]) IV Assessment Peripheral Access Right Antecubital IV Catheter Access Initiated IV Insertion Date 04/06/25 IV Insertion Time 11:29 Catheter Gauge 20 IV Site Assessment WNL IV Care and WNL Maintenance PA: Musculoskeletal Assessment Start: 04/06/25 09:14 Freq: Status: Active Protocol: Document 04/06/25 11:29 ANT (Rec: 04/06/25 11:29 ANT [id number]) Musculoskeletal Assessment Left Abdomen Musculoskeletal Muscle Pain,Muscle Pain With Movement Symptoms Limb Description Normal Range of Motion Limited Range of Motion Last Vital Signs Temperature 98.2 F 04/06/25 13:33 Pulse Rate 90 04/06/25 13:33 Respiratory Rate 16 04/06/25 13:33 Pulse Oximetry 95 04/06/25 13:33 Blood Pressure 120/77 04/06/25 13:33 Blood Pressure Mean 91 04/06/25 13:33 Oxygen Delivery Room Air 04/06/25 09:18 Weight 54.2 kg 04/06/25 11:21 Last Result - Abnormals Only RBC 3.25 M/mm3 (4.2-5.4) L 04/06/25 11:31 Hgb 9.7 g/dL (12.0-15.0) L 04/06/25 11:31 Hct 30.4 % (37.0-47.0) L 04/06/25 11:31 MCHC 31.9 g/dl (32-36) L 04/06/25 11:31 Plt Count 393 k/mm3 (150-375) H 04/06/25 11:31 Neut % (Auto) 74.1 % (45.5-73.1) H 04/06/25 11:31 Abs Immat Gran (auto) 0.04 K/mm3 (0.00-0.031) H 04/06/25 11:31 Absolute Neuts (auto) 7.4 K/mm3 (1.3-6.7) H 04/06/25 11:31 Carbon Dioxide 31 mmol/L (22-30) H 04/06/25 11:31 Creatinine 1.05 mg/dL (0.7-1.0) H 04/06/25 11:31 Total Protein 8.9 g/dL (6.3-8.2) H 04/06/25 11:31 Urine Appearance Turbid (Clear) H 04/06/25 11:31 Urine Protein 1+ mg/dL (Negative) H 04/06/25 11:31 Ur Blood (Man) 2+ (Negative) H 04/06/25 11:31 Leukocyte Esterase Rfl 3+ FERNANDO/UL (Negative) H 04/06/25 11:31 Urine RBC 6-10 /hpf (0-2) H 04/06/25 11:31 Urine WBC >100 /hpf (0-3) H 04/06/25 11:31 Urine Bacteria 1+ /hpf H 04/06/25 11:31 Most Recent Suicide Severity Rating Suicide Severity Rating NO RISK INDICATED 04/06/25 11:21
--- NOTE | 2025-04-06 14:09 | ADMGEN ---
This patient, Queta Grayson, was admitted to -. Patient/family oriented to hospital policies and general routines including ID bracelet, bed and alarms, visiting hours, pain management, procedures, bathroom and other care routines, personal items, smoking policy, room service/diet, and visiting hours. Information on how to activate the Rapid Response Team has been discussed. Patient/Family are encouraged to report perceived risks to care and to ask questions if they do not understand what they are told or what they should do.
[2025-04-06 14:12] VITALS: BMI 24.7
--- NOTE | 2025-04-06 14:42 | PM.IMHP ---
H&P: HPI History of Present Illness Date/Time: 04/06/25 14:42 Chief Complaint: Left flank pain Narrative: 39-year-old female with past medical history of migraines, open-angle glaucoma, kidney stones, anxiety, opioid use disorder on methadone presents to the ED on 04/06/2025 with complaints of left flank pain for the past 3 days. Patient also states there was blood on the tissue when she wiped today. Patient presented to [facility] on 04/05 with the same complaints and was directed to go to the emergency department based on her UA and presenting symptoms. She did present to the [facility] ED but eloped after being seen by the provider. Patient reports urinary frequency and nausea but no vomiting. She feels that she may have had a low fever yesterday but did not check. Patient required lithotripsy in the past. Initial vital signs 116/79, HR 88, respirations 16, afebrile and 99% on room air No leukocytosis, creatinine mildly elevated at 1.05. UA 1+ protein, 2+ blood, 3+ leukocyte esterase, 6-10 RBC, > 100 WBC, 1+ bacteria. HCG negative Abdomen pelvis CT reveals left 7 mm UPJ stone with hydronephrosis. Small bilateral nephrolithiasis Plan was for patient to go to OR today for stent placement but was found to be eating a Slim Jonathan, pushing the surgery to 04/07 Review of Systems Review of Systems: All systems reviewed & are unremarkable except as noted in HPI and below PMFSH Social History Social History Smoking packs per day: 0.5 Smoking cigarettes per day: 10.0 Years smoked: 17 Smoking pack-years: 8.50 Smoking status: Current every day smoker Alcohol intake: never Substance use: never Lack of Transportation: No Lack of Food: Never True Current Housing: I Have Housing Concerned About Future Housing: No Difficulty Paying Gas/Electric Bills: No Difficulty Paying for Meds: No Currently Unemployed: No Education: Grade School Difficulty w/ Childcare or Family Care: No Spiritual care concerns: No Meds Home Medications and Allergies Home Medications ?Medication ?Instructions ?Recorded ?Confirmed ?Type atenolol 50 mg tablet 50 mg PO DAILY 04/06/25 04/06/25 History brimonidine 0.2 % eye drops 1 drp EACH EYE BID 04/06/25 04/06/25 History cyclobenzaprine 10 mg tablet 10 mg PO TID PRN muscle spasm 04/06/25 04/06/25 History gabapentin 300 mg capsule 600 mg PO TID 04/06/25 04/06/25 History latanoprost 0.005 % eye drops 1 drp EACH EYE QPM 04/06/25 04/06/25 History methadone 10 mg/mL oral syringe 100 mg PO DAILY 04/06/25 04/06/25 History (FOR ORAL USE ONLY) sertraline 100 mg tablet 200 mg PO DAILY 04/06/25 04/06/25 History sumatriptan succinate 100 mg 100 mg PO DAILY PRN migraine 04/06/25 04/06/25 History tablet (Imitrex) headache timolol maleate 0.5 % eye drops 1 drp EACH EYE Q12H 04/06/25 04/06/25 History Allergies Allergy/AdvReac Type Severity Reaction Status Date / Time No Known Allergies Allergy Unknown Verified 04/06/25 09:20 Vital Signs Vital Signs - 24 hr 04/06/25 09:18 04/06/25 13:33 Temperature 98.2 F 98.2 F Pulse Rate 88 90 Respiratory Rate 16 16 Blood Pressure 116/79 120/77 Pulse Oximetry 99 95 Oxygen Delivery Room Air Exam Narrative: GENERAL: non-toxic appearing, in no acute distress. HEAD: Normocephalic, atraumatic. EYES: PERRLA. Conjunctivae clear. NOSE: Normal no drainage. THROAT: Pharynx clear, no exudate. NECK: Trachea midline. No adenopathy, no masses. RESPIRATORY: Airway patent, respirations nonlabored. CTA. CARDIOVASCULAR: Regular rate and rhythm BREASTS: Defer GASTROINTESTINAL: Abdomen is soft and mildly tender to the left lower quadrant. No organomegaly. Bowel sounds normal in all quadrants. GENITOURINARY: Left-sided CVA tenderness MUSCULOSKELETAL: Moves all extremities. No gross deformities. SKIN: Warm, dry, normal color. NEURO: A&O X4. Speech clear PSYCHIATRIC: Normal interaction H&P: Results Labs Labs: Short CBC 04/06/25 Range/Units 11:31 WBC 9.9 (4.5-10.0) K/mm3 Hgb 9.7 L (12.0-15.0) g/dL Hct 30.4 L (37.0-47.0) % Plt Count 393 H (150-375) k/mm3 BMP 04/06/25 11:31 Sodium 138 Potassium 4.2 Chloride 102 Carbon Dioxide 31 H BUN 17 Creatinine 1.05 H Glucose 77 Calcium 9.0 Liver Function 04/06/25 Range/Units 11:31 Total Bilirubin 0.4 (0.2-1.3) mg/dL AST 28 (14-36) U/L ALT 16 (6-35) U/L Alkaline Phosphatase 85 (38-126) U/L Albumin 3.7 (3.5-5.1) g/dL Urine 04/06/25 Range/Units 11:31 Urine Color Yellow (Yellow) Urine Appearance Turbid H (Clear) Urine pH 7.0 (5.0-9.0) Ur Specific [place] 1.011 (1.001-1.035) Urine Protein 1+ H (Negative) mg/dL Urine Glucose (UA) Negative (Negative) mg/dL Assessment and Plan Assessment and plan (1) Calculus of proximal left ureter: Code(s): N20.1 - Calculus of ureter Status: Acute Assessment and Plan: Three day history of left flank pain with urinary frequency and intermittent hematuria. Patient has a history of kidney stones. Abdomen pelvis CT reveals left 7 mm UPJ stone with hydronephrosis. Small bilateral nephrolithiasis. Plan was for patient to go to OR today for stent placement but was found to be eating a Slim Jonathan, pushing the surgery to 04/07. -urology consult with plan for cystoscopy left retrograde pyelogram and left ureteral stent placement 04/[address] Lambert. -NPO at midnight -morphine p.r.n. -Zofran p.r.n. -1 L NS bolus -normal saline at 100 started 04 06 (2) UTI (urinary tract infection): Qualifiers: Hematuria presence: with hematuria Urinary tract infection type: acute cystitis Qualified Code(s): N30.01 - Acute cystitis with hematuria Code(s): N39.0 - Urinary tract infection, site not specified Status: Acute Assessment and Plan: UA 1+ protein, 2+ blood, 3+ leukocyte esterase, 6-10 RBC, > 100 WBC, 1+ bacteria. Patient endorses urinary frequency and intermittent hematuria over the past 3 days. 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 Assessment and Plan: Continue daily 100 mg methadone Plan Diet: NPO GI prophylaxis: NA DVT prophylaxis: SCDs lines/drains: PIV Fluids: 1 L NS bolus-NS at 100 started on 04/06 Code status: Full Quality VTE Prophylaxis VTE prophylaxis: mechanical ordered Hospitalist [facility] Advance Care Plan I have confirmed that the patient's Advanced Care Plan is present, code status is documented, or surrogate decision maker is listed in patient medical record.: Yes Medication Reconciliation I have utilized all available resources to obtain, update and review the patients current medications (includes all prescriptions, OTC, herbals, cannabis, and nutritional supplements).: Yes
[2025-04-06 14:45] VITALS: BP 97/66; PULSE 80; RESP 16; TEMP 36.4; O2SAT 100
[2025-04-06] MEDS: LATANOPROST 0.005% OP SOLN 2.5 ML BTL 1 DROP EACH EYE (16:51)
[2025-04-06] MEDS: GABAPENTIN 300 MG CAPSULE 600 MG PO (16:51)
[2025-04-06] MEDS: BRIMONIDINE TARTRATE 0.2% OP SOLN 5 ML BTL 1 DROP EACH EYE (16:51)
[2025-04-06] MEDS: NICOTINE (*PBKC) 21 MG PATCH 1 PATCH TRANSDERM (18:12)
[2025-04-06 19:28] LABS: Cannabinoid Screen Urine Negative (Negative)
[2025-04-06 20:00] VITALS: PULSE 79; RESP 16; O2SAT 96
[2025-04-06] MEDS: TIMOLOL MALEATE 0.5% OP SOLN 5 ML BOTTLE 1 DROP EACH EYE (21:01)
[2025-04-06 21:26] VITALS: BP 124/69; PULSE 79; RESP 16; TEMP 36.1; O2SAT 96
[2025-04-07] VITALS (10 sets, daily range): BP systolic 122–148; BP diastolic 80–89; PULSE 66–86; RESP 12–18; TEMP 36.1–36.4; O2SAT 96–100; BMI 24.7
[2025-04-07] MEDS: SODIUM CHLORIDE 0.9% IV 1,000 ML 100 ML IV CONT (00:20)
[2025-04-07 05:31] LABS: Hematocrit 29.1 % (37.0-47.0); Hemoglobin 9.1 g/dL (12.0-15.0); Immature Granulocyte Percent A 0.4 % (0-0.5); Lymphocytes Absolute Auto 1.59 K/mm3 (0.9-3.2); Mean Corpuscular HGB Conc 31.3 g/dl (32-36); Mean Corpuscular Hemoglobin 29.8 pg (26-34); Mean Corpuscular Volume 95.4 fl (80-100); Nucleated Red Blood Cells Absolute Auto 0.000 K/mm3 (0.0-0.012); Nucleated Red Blood Cells Perc 0.0 % (0.0-0.2); Platelet Count Result 312 k/mm3 (150-375); Red Blood Count 3.05 M/mm3 (4.2-5.4); White Blood Count 5.6 K/mm3 (4.5-10.0)
[2025-04-07 05:51] LABS: Anion Gap 5 mmol/L (4-12); Blood Urea Nitrogen 13 mg/dL (7-17); Calcium 8.9 mg/dL (8.4-10.2); Carbon Dioxide 28 mmol/L (22-30); Chloride 110 mmol/L (98-107); Estimated CRCL calculation 54 ml/min; Estimated Glomerular Filt Rate > 60; Glucose 75 mg/dL (65-110); Potassium 4.3 mmol/L (3.4-5.0); Sodium 143 mmol/L (137-145)
[2025-04-07] MEDS: MORPHINE SULFATE (*CRX) 4 MG/ML INJ IV PUSH (06:46)
--- NOTE | 2025-04-07 08:28 | PM.IMPN ---
Progress Note: A&P Assessment and Plan (1) Calculus of proximal left ureter: Code(s): N20.1 - Calculus of ureter Status: Acute Assessment and Plan: Three day history of left flank pain with urinary frequency and intermittent hematuria. Patient has a history of kidney stones. Abdomen pelvis CT reveals left 7 mm UPJ stone with hydronephrosis. Small bilateral nephrolithiasis. Plan was for patient to go to OR today for stent placement but was found to be eating a Slim Jonathan, pushing the surgery to 04/07. -urology consult with plan for cystoscopy left retrograde pyelogram and left ureteral stent placement 04/[address] Lambert. -NPO at midnight -morphine p.r.n. -Zofran p.r.n. -1 L NS bolus -normal saline at 100 started 04 06 04/07 npo for cystoscopy (2) UTI (urinary tract infection): Qualifiers: Hematuria presence: with hematuria Urinary tract infection type: acute cystitis Qualified Code(s): N30.01 - Acute cystitis with hematuria Code(s): N39.0 - Urinary tract infection, site not specified Status: Acute Assessment and Plan: UA 1+ protein, 2+ blood, 3+ leukocyte esterase, 6-10 RBC, > 100 WBC, 1+ bacteria. Patient endorses urinary frequency and intermittent hematuria over the past 3 days. -Rocephin started on 04/06 - UC pending (3) Methadone maintenance therapy patient: Code(s): Z79.891 - senior living (current) use of opiate analgesic Status: Inactive Assessment and Plan: Continue daily 100 mg methadone Plan Diet: NPO GI prophylaxis: NA DVT prophylaxis: SCDs lines/drains: PIV Fluids: 1 L NS bolus-NS at 100 started on 04/06 Code status: Qual Research Manager Spent With Patient Time with patient: 25 - 35 minutes Subjective Date/time seen: 04/07/25 08:28 Interval history: 39-year-old female with past medical history of migraines, open-angle glaucoma, kidney stones, anxiety, opioid use disorder on methadone presents to the ED on 04/06/2025 with complaints of left flank pain for the past 3 days. Patient also states there was blood on the tissue when she wiped today. Patient presented to [facility] on 04/05 with the same complaints and was directed to go to the emergency department based on her UA and presenting symptoms. She did present to the [facility] ED but eloped after being seen by the provider. Patient reports urinary frequency and nausea but no vomiting. She feels that she may have had a low fever yesterday but did not check. Patient required lithotripsy in the past. Initial vital signs 116/79, HR 88, respirations 16, afebrile and 99% on room air No leukocytosis, creatinine mildly elevated at 1.05. UA 1+ protein, 2+ blood, 3+ leukocyte esterase, 6-10 RBC, > 100 WBC, 1+ bacteria. HCG negative Abdomen pelvis CT reveals left 7 mm UPJ stone with hydronephrosis. Small bilateral nephrolithiasis Plan was for patient to go to OR today for stent placement but was found to be eating a Slim Jonathan, pushing the surgery to 04/07. Pt is seen and examined. NPO now for cystoscopy today Review of Systems Review of Systems: All systems reviewed & are unremarkable except as noted in HPI and below Exam Narrative: GENERAL: non-toxic appearing, in no acute distress. HEAD: Normocephalic, atraumatic. EYES: PERRLA. Conjunctivae clear. NOSE: Normal no drainage. THROAT: Pharynx clear, no exudate. NECK: Trachea midline. No adenopathy, no masses. RESPIRATORY: Airway patent, respirations nonlabored. CTA. CARDIOVASCULAR: Regular rate and rhythm BREASTS: Defer GASTROINTESTINAL: Abdomen is soft and mildly tender to the left lower quadrant. No organomegaly. Bowel sounds normal in all quadrants. GENITOURINARY: Left-sided CVA tenderness MUSCULOSKELETAL: Moves all extremities. No gross deformities. SKIN: Warm, dry, normal color. NEURO: A&O X4. Speech clear PSYCHIATRIC: Normal interaction Objective Data Vital Signs Vital Signs: Vital Signs - 24 hr 04/06/25 09:18 04/06/25 13:33 04/06/25 14:30 Temperature 98.2 F 98.2 F Pulse Rate 88 90 Respiratory Rate 16 16 Blood Pressure 116/79 120/77 Pulse Oximetry 99 95 Oxygen Delivery Room Air Room Air 04/06/25 14:45 04/06/25 20:00 04/06/25 21:26 Temperature 97.5 F L 96.9 F L Pulse Rate 80 79 79 Respiratory Rate 16 16 16 Blood Pressure 97/66 L 124/69 Pulse Oximetry 100 96 96 Oxygen Delivery Room Air 04/07/25 05:15 Temperature 96.9 F L Pulse Rate 86 Respiratory Rate 18 Blood Pressure 133/86 Pulse Oximetry 96 Oxygen Delivery Intake/Output Intake/Output: Intake & Output 04/04/25 04/05/25 04/06/25 04/07/25 23:59 23:59 23:59 23:59 Intake Total 1050 0 Output Total 1100 Balance 1050 -1100 Meds/Results Medications: Active Medications Generic Name Dose Route Start Last Admin Trade Name Freq PRN Reason Stop Dose Admin Acetaminophen 650 mg 04/06/25 13:17 Acetaminophen 325 Mg Tablet PO Q4H PRN Mild Pain (1-3) or Fever Atenolol 50 mg 04/07/25 09:00 Atenolol 50 Mg Tablet PO DAILY GUANACO Brimonidine Tartrate 1 drop 04/06/25 17:00 04/06/25 16:51 Brimonidine Tartrate 0.2% Op Soln 5 Ml Btl EACH EYE 1 drop BID GUANACO Administration Cyclobenzaprine HCl 10 mg 04/06/25 14:58 Cyclobenzaprine Hcl 10 Mg Tablet PO TID PRN Muscle Spasm Dextrose 12.5 gm 04/06/25 13:17 Dextrose 50% 25 Gm/50 Ml Syringe IV PUSH PRN PRN Hypoglycemia Protocol Gabapentin 600 mg 04/06/25 17:00 04/06/25 16:51 Gabapentin 300 Mg Capsule PO 600 mg TID GUANACO Administration Glucagon 1 mg 04/06/25 13:17 Glucagon For Inj 1 Mg Vial IM PRN PRN Hypoglycemia Protocol Glucose 15 gm 04/06/25 13:17 Glucose Oral Gel 15 Gm Of Glucse In 37.5 Gm Tube PO PRN PRN Hypoglycemia Protocol Dextrose 1,000 mls @ 100 mls/hr 04/06/25 13:17 Dextrose 5% 1,000 Ml IVPB PRN PRN Hypoglycemia Protocol Ceftriaxone Sodium 1 gm/ 50 mls @ 100 mls/hr 04/07/25 12:00 Sodium Chloride IVPB Q24H GUANACO Sodium Chloride 1,000 mls @ 100 mls/hr 04/06/25 23:20 04/07/25 00:20 Normal Saline Iv IV CONT 100 mls/hr .Q10H GUANACO Administration Lactated Ringer's 1,000 mls @ 30 mls/hr 04/07/25 06:55 Lr - Lactated Ringers Iv IV CONT .Q24H GUANACO Latanoprost 1 drop 04/06/25 18:00 04/06/25 16:51 Latanoprost 0.005% Op Soln 2.5 Ml Btl EACH EYE 1 drop QPM GUANACO Administration Methadone HCl 100 mg 04/07/25 09:00 Methadone Hcl (*Crx) 10 Mg Tablet PO DAILY GUANACO Morphine Sulfate 4 mg 04/06/25 13:17 04/07/25 06:46 Morphine Sulfate (*Crx) 4 Mg/Ml Inj IV PUSH 4 mg Q2H PRN Administration Pain Rated 7-10 Nicotine 1 patch 04/06/25 17:35 04/06/25 18:12 Nicotine (*Pbkc) 21 Mg Patch TRANSDERM 1 patch DAILY GUANACO Administration Ondansetron HCl 4 mg 04/06/25 13:17 Ondansetron Inj 4 Mg/2 Ml Vial IV PUSH Q4H PRN Nausea Sertraline HCl 200 mg 04/07/25 09:00 Sertraline Hcl 50 Mg Tablet PO DAILY GUANACO Sumatriptan Succinate 100 mg 04/06/25 14:58 Sumatriptan Succinate 25 Mg Tablet PO DAILY PRN Migraine Headache Timolol Maleate 1 drop 04/06/25 21:00 04/06/25 21:01 Timolol Maleate 0.5% Op Soln 5 Ml Bottle EACH EYE 1 drop Q12HR GUANACO Administration Radiology Results: ITS Impressions Abdomen/Pelvis CT 04/06/25 11:25 IMPRESSION: 1. Left kidney hydronephrosis due to 7 mm UPJ stone. 2. Small bilateral nephrolithiasis. 3. Additional findings as above. Abdomen X-Ray 04/06/25 12:56 IMPRESSION: 6 x 3 mm stone adjacent to the left L4 transverse process consistent with history provided of ureteral stone. Labs Labs: Laboratory Results - last 24 hr 04/06/25 04/06/25 04/06/25 11:06 11:31 18:11 WBC 9.9 RBC 3.25 L Hgb 9.7 L Hct 30.4 L MCV 93.5 MCH 29.8 MCHC 31.9 L RDW 12.2 Plt Count 393 H MPV 8.3 Immature Gran % (Auto) 0.4 Neut % (Auto) 74.1 H Lymph % (Auto) 18.4 [place] % (Auto) 6.0 Eos % (Auto) 0.7 Baso % (Auto) 0.4 Lymph # (Auto) 1.83 Marshall # (Auto) 0.6 Eos # (Auto) 0.1 Baso # (Auto) 0.0 Abs Immat Gran (auto) 0.04 H Absolute Neuts (auto) 7.4 H Absolute Nucleated RBC 0.000 Nucleated RBC % 0.0 Sodium 138 Potassium 4.2 Chloride 102 Carbon Dioxide 31 H Anion Gap 5 BUN 17 Creatinine 1.05 H Estim Creat Clear Calc 47 Estimated GFR 59 Glucose 77 Calcium 9.0 Total Bilirubin 0.4 AST 28 ALT 16 Alkaline Phosphatase 85 Total Protein 8.9 H Albumin 3.7 Urine Color Yellow Urine Appearance Turbid H Urine pH 7.0 Ur Specific [place] 1.011 Urine Protein 1+ H Urine Glucose (UA) Negative Urine Ketones Negative Ur Blood (Man) 2+ H Urine Nitrate Negative Urine Bilirubin Negative Urine Urobilinogen 1.0 Leukocyte Esterase Rfl 3+ H Urine RBC 6-10 H Urine WBC >100 H Ur Squamous Epith Cells Occasional Urine Bacteria 1+ H Urine Casts 3-5 POC Urine HCG, Qual Negative Urine Opiates Screen Positive A Urine Methadone Screen Positive A Ur Barbiturates Screen Negative Ur Phencyclidine Scrn Negative Ur Amphetamine Screen Negative U Benzodiazepines Scrn Negative Urine Cocaine Screen Negative U Cannabinoids Screen Negative 04/07/25 05:20 WBC 5.6 RBC 3.05 L Hgb 9.1 L Hct 29.1 L MCV 95.4 MCH 29.8 MCHC 31.3 L RDW 12.4 Plt Count 312 MPV 8.2 Immature Gran % (Auto) 0.4 Neut % (Auto) 63.7 Lymph % (Auto) 28.3 [place] % (Auto) 5.7 Eos % (Auto) 1.4 Baso % (Auto) 0.5 Lymph # (Auto) 1.59 [place] # (Auto) 0.3 Eos # (Auto) 0.1 Baso # (Auto) 0.0 Abs Immat Gran (auto) 0.02 Absolute Neuts (auto) 3.6 Absolute Nucleated RBC 0.000 Nucleated RBC % 0.0 Sodium 143 Potassium 4.3 Chloride 110 H Carbon Dioxide 28 Anion Gap 5 BUN 13 Creatinine 0.90 Estim Creat Clear Calc 54 Estimated GFR > 60 Glucose 75 Calcium 8.9 Total Bilirubin AST ALT Alkaline Phosphatase Total Protein Albumin Urine Color Urine Appearance Urine pH Ur Specific [place] Urine Protein Urine Glucose (UA) Urine Ketones Ur Blood (Man) Urine Nitrate Urine Bilirubin Urine Urobilinogen Leukocyte Esterase Rfl Urine RBC Urine WBC Ur Squamous Epith Cells Urine Bacteria Urine Casts POC Urine HCG, Qual Urine Opiates Screen Urine Methadone Screen Ur Barbiturates Screen Ur Phencyclidine Scrn Ur Amphetamine Screen U Benzodiazepines Scrn Urine Cocaine Screen U Cannabinoids Screen Quality VTE Prophylaxis VTE prophylaxis: mechanical ordered
[2025-04-07] MEDS: TIMOLOL MALEATE 0.5% OP SOLN 5 ML BOTTLE 1 DROP EACH EYE (08:44)
[2025-04-07] MEDS: BRIMONIDINE TARTRATE 0.2% OP SOLN 5 ML BTL 1 DROP EACH EYE (08:45)
[2025-04-07] MEDS: NICOTINE (*PBKC) 21 MG PATCH 1 PATCH TRANSDERM (08:49)
[2025-04-07] MEDS: cefTRIAXone 1 GM in SODIUM CHLORIDE 0.9% IV 50 ML 100 ML IVPB (11:47)
--- NOTE | 2025-04-07 12:42 | WPDANESEPPF ---
Anes - Initial Pre Proc Eval Procedure: Operation Date: 04/07/25 13:30 Proposed Procedures p Cystoscopy, Possible Left Retrograde Pyelogram, Possible Left Stent Placement, Possible Left Stone Extraction, Possible Holmium Laser Lithotripsy(Left) - Marialuisa Lambert MD Date/Time: 04/07/25 12:42 Surgeon: Jose Milian MD Pre Op Diagnosis: L Prox Ureteral Stone w/Infection Patient Data Age: 39 Gender: F Height: 1.52 m Weight: 57.5 kg Last Vital Signs Temp 36.1 C L 04/07/25 08:31 Pulse 78 04/07/25 09:06 Resp 18 04/07/25 08:31 BP 134/83 04/07/25 08:31 Pulse Ox 100 04/07/25 08:31 O2 Del Method Room Air 04/07/25 08:45 Allergies Allergy/AdvReac Type Severity Reaction Status Date / Time No Known Allergies Allergy Unknown Verified 04/06/25 09:20 Home Medications ?Medication ?Instructions ?Recorded ?Confirmed ?Type atenolol 50 mg tablet 50 mg PO DAILY 04/06/25 04/06/25 History brimonidine 0.2 % eye drops 1 drp EACH EYE BID 04/06/25 04/06/25 History cyclobenzaprine 10 mg tablet 10 mg PO TID PRN muscle spasm 04/06/25 04/06/25 History gabapentin 300 mg capsule 600 mg PO TID 04/06/25 04/06/25 History latanoprost 0.005 % eye drops 1 drp EACH EYE QPM 04/06/25 04/06/25 History methadone 10 mg/mL oral syringe 100 mg PO DAILY 04/06/25 04/06/25 History (FOR ORAL USE ONLY) sertraline 100 mg tablet 200 mg PO DAILY 04/06/25 04/06/25 History sumatriptan succinate 100 mg 100 mg PO DAILY PRN migraine 04/06/25 04/06/25 History tablet (Imitrex) headache timolol maleate 0.5 % eye drops 1 drp EACH EYE Q12H 04/06/25 04/06/25 History Laboratory Tests 04/06/25 04/07/25 18:11 05:20 WBC 5.6 K/mm3 (4.5-10.0) RBC 3.05 L M/mm3 (4.2-5.4) Hgb 9.1 L g/dL (12.0-15.0) Hct 29.1 L % (37.0-47.0) MCV 95.4 fl (80-100) MCH 29.8 pg (26-34) MCHC 31.3 L g/dl (32-36) RDW 12.4 % (11.5-14.5) Plt Count 312 k/mm3 (150-375) MPV 8.2 fl (7.4-10.4) Immature Gran % (Auto) 0.4 % (0-0.5) Neut % (Auto) 63.7 % (45.5-73.1) Lymph % (Auto) 28.3 % (18.3-44.2) [place] % (Auto) 5.7 % (2.6-8.5) Eos % (Auto) 1.4 % (0-4.4) Baso % (Auto) 0.5 % (0.2-1.2) Lymph # (Auto) 1.59 K/mm3 (0.9-3.2) [place] # (Auto) 0.3 K/mm3 (0.1-0.6) Eos # (Auto) 0.1 K/mm3 (0-0.3) Baso # (Auto) 0.0 K/mm3 (0.0-0.1) Abs Immat Gran (auto) 0.02 K/mm3 (0.00-0.031) Absolute Neuts (auto) 3.6 K/mm3 (1.3-6.7) Absolute Nucleated RBC 0.000 K/mm3 (0.0-0.012) Nucleated RBC % 0.0 % (0.0-0.2) Sodium 143 mmol/L (137-145) Potassium 4.3 mmol/L (3.4-5.0) Chloride 110 H mmol/L (98-107) Carbon Dioxide 28 mmol/L (22-30) Anion Gap 5 mmol/L (4-12) BUN 13 mg/dL (7-17) Creatinine 0.90 mg/dL (0.7-1.0) Estim Creat Clear Calc 54 ml/min Estimated GFR > 60 (59 - ) Glucose 75 mg/dL (65-110) Calcium 8.9 mg/dL (8.4-10.2) Urine Opiates Screen Positive A (Negative) Urine Methadone Screen Positive A (Negative) Ur Barbiturates Screen Negative (Negative) Ur Phencyclidine Scrn Negative (Negative) Ur Amphetamine Screen Negative (Negative) U Benzodiazepines Scrn Negative (Negative) Urine Cocaine Screen Negative (Negative) U Cannabinoids Screen Negative (Negative) Patient hx anesthesia problems: none Family hx anesthesia problems: none Results Review: All pre-operative results and documents have been reviewed as part of the pre-operative evaluation. [facility] Past Medical History Medical History (Updated 04/07/25 @ 12:42 by Jay Iverson MD) Methadone maintenance therapy patient Surgical History Surgical History (Updated 04/07/25 @ 12:43 by Jay Iverson MD) Hx of tonsillectomy Social History Social History Smoking packs per day: 0.5 Smoking cigarettes per day: 10.0 Years smoked: 17 Smoking pack-years: 8.50 Smoking status: Current every day smoker Alcohol intake: never Substance use: never Lack of Transportation: No Lack of Food: Never True Current Housing: I Have Housing Concerned About Future Housing: No Difficulty Paying Gas/Electric Bills: No Difficulty Paying for Meds: No Currently Unemployed: No Education: Grade School Difficulty w/ Childcare or Family Care: No Spiritual care concerns: No Anes - Eval Final PreProcedure Day of Procedure 04/07/25 12:42 Patient weight: normal Heart: regular rate and rhythm Lungs: clear to auscultation Airway: Mallampati scale class II and special considerations poor dentition Neurological: alert and oriented Last oral intake: >/= 8 hours ASA classification: III Emergent: no Anesthetic plan: proceed Anesthesia type and monitoring: general LMA and standard monitoring Results Review: All pre-operative results and documents have been reviewed as part of the pre-operative evaluation. Informed Consent: The patient's anesthetic plan and its attendant risks and benefits were discussed with the patient/family/POA. Questions were solicited and answers provided to the satisfaction of the patient/family/POA.
[2025-04-07] MEDS: LACTATED RINGERS 1,000 ML 30 ML IV CONT (13:00)
[2025-04-07] MEDS: LIDOCAINE 2% GEL UROJET 10 ML PKG MUCOUS MEM (14:34)
--- NOTE | 2025-04-07 15:04 | W.PM.PROC2 ---
Procedure Note - Detailed Date of Procedure 04/07/25 Pre-op Diagnosis L Prox Ureteral Stone w/UTI Post-op Diagnosis Same Procedure Performed Cystoscopy, left retrograde pyelography, left ureteral stent placement Surgeon Narinder Issa MD Anesthesia General Description of Procedure The patient was brought to the operative suite where she was prepped and draped in a routine sterile fashion while in the dorsal lithotomy position. A 19 F rigid cystoscope was placed in her bladder and the bladder was circumferentially inspected. The bladder neck and urethra were endoscopically normal. The bladder mucosa showed patchy hyperemia consistent with bacterial cystitis. There was no intravesical foreign body or neoplasm. There was a single orthotopic ureteral orifice bilaterally. I advanced .035 glidewire into the left renal pelvis under fluoroscopy. Ancona catheter was used to obtain a left retrograde pyelogram ensure appropriate placement of the ureteral stent. A 4.8F variable length ureteral stent was positioned with the proximal coil in the renal pelvis and the distal coil in the bladder. Scopes and wires were removed after emptying the patient's bladder. Urine Output 1,100 Drains Yes Packing No Pathology Yes Complications No immediate complications
[2025-04-07] MEDS: fentaNYL CITRATE INJ (*CRX) 100 MCG/2 ML VIAL 25 MCG IV PUSH ×2 (15:56→16:01)
[2025-04-07] MEDS: GABAPENTIN 300 MG CAPSULE 600 MG PO (16:34)
[2025-04-07] MEDS: SERTRALINE HCL 50 MG TABLET 200 MG PO (16:35)
--- NOTE | 2025-04-08 06:48 | P.DS_ITS ---
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 Patient also states there was blood on the tissue when she wiped today. Patient presented to [facility] on 04/05 with the same complaints and was directed to go to the emergency department based on her UA and presenting symptoms. She did present to the [place] ED but eloped after being seen by the provider. Patient reports urinary frequency and nausea but no vomiting. She feels that she may have had a low fever yesterday but did not check. Patient required lithotripsy in the past. Urology was consulted and pt was taken to OR for Cystoscopy, left retrograde pyelography, left ureteral stent placement with Dr Issa on 04/07. She tolerated procedure well and was cleared for discharge per urology. Rx for UTI was sent per Dr Issa for cefdinir 300 mg bid x 7 days. She is to follow up with urology as an outpt for further mngmnt. Status at Discharge Functional status at discharge: independent ambulation Time Spent with Patient Time attestation: Total time spent providing and/or coordinating discharge services: Time spent: Less than 30 minutes Exam Narrative: GENERAL: non-toxic appearing, in no acute distress. HEAD: Normocephalic, atraumatic. EYES: PERRLA. Conjunctivae clear. NOSE: Normal no drainage. THROAT: Pharynx clear, no exudate. NECK: Trachea midline. No adenopathy, no masses. RESPIRATORY: Airway patent, respirations nonlabored. CTA. CARDIOVASCULAR: Regular rate and rhythm BREASTS: Defer GASTROINTESTINAL: Abdomen is soft and mildly tender to the left lower quadrant. No organomegaly. Bowel sounds normal in all quadrants. GENITOURINARY: Left-sided CVA tenderness MUSCULOSKELETAL: Moves all extremities. No gross deformities. SKIN: Warm, dry, normal color. NEURO: A&O X4. Speech clear PSYCHIATRIC: Normal interaction Const: General: comfortable Discharge Plan Discharge Attending physician on discharge: Jose Milian Consulting providers: Marialuisa Lambert Discharging Clinician: Millie George Patient Disposition: Home Activity: september shower Diet: as tolerated Discharge Instructions: Per Dr. Issa, start Omnicef 300mg BID for seven days. The urology office will contact you for follow up/ possible lithotripsy. Patient Instructions: Antibiotic Form, How to Stop Smoking (DC) Patient Language: [place]guill[place] Stand Alone Forms: General Discharge Information Follow-up/Referrals: Narinder Issa MD [Physician, Urology] Discharge Medications: New cefdinir 300 mg capsule 300 mg PO Q12H Qty: 14 0RF Continued atenolol 50 mg tablet 50 mg PO DAILY brimonidine 0.2 % drops 1 drp EACH EYE BID cyclobenzaprine 10 mg tablet 10 mg PO TID PRN (Reason: muscle spasm) gabapentin 300 mg capsule 600 mg PO TID latanoprost 0.005 % drops 1 drp EACH EYE QPM sertraline 100 mg tablet 200 mg PO DAILY timolol maleate 0.5 % drops 1 drp EACH EYE Q12H methadone 10 mg/mL syringe 100 mg PO DAILY sumatriptan succinate [Imitrex] 100 mg tablet 100 mg PO DAILY PRN (Reason: migraine headache) Date of admission: 04/06/25 13:18 Primary Care Provider: Thompson,Linda Mcintyre Admitting Provider: Jose Milian Attending physician on admission: Jose Milian Condition: Stable Quality VTE Prophylaxis VTE prophylaxis: mechanical ordered
--- NOTE | 2025-04-10 15:20 | WPDHPUPDATE1 ---
History and Physical Update Update Date/Time: 04/10/25 15:20 History and Physical has been reviewed, including an updated exam of the patient. There are NO changes in the patient's condition. Risks, benefits, and alternatives have been discussed and questions answered. Patient agrees to proceed with procedure.
== END 2025-04-07 17:40 | disposition home or self-care (01) ==
LOC: ANHED 12:29 → ANH2MED 14:10
PROVIDERS: Nurse Practitioner Adult Health; Urology; Admitting Provider General Practice; Emergency Provider Physician Assistant; PCP Nurse Practitioner Family; Visit Provider General Practice
PROC: (CPT 52352; principal; 2025-04-07 13:30)
DX: N20.1 Calculus of ureter (principal); N30.01 Acute cystitis with hematuria; Z87.442 Personal history of urinary calculi; F17.210 Nicotine dependence, cigarettes, uncomplicated; Z79.891 Long term (current) use of opiate analgesic; F41.9 Anxiety disorder, unspecified
CPT/HCPCS: 52332; 36415; 74018; 74176; 74420; 80048; 80053; 80307; 81001; 81025; 85025; 87086; 87186; 96365; 96374; 96375; 96376; 99285; A9270; C1769; C2617; G0378; G0379; J0696; J2003; J2250; J2270; J2405; J2704; J3010; J7030; J7120; Q9966